=== PATIENT | male | born 1960 | race African-American/Black ===

== ENCOUNTER 2024-01-02 17:10 | Observation (INO) ==
[2024-01-02 18:22] LABS: Basophils # (auto) 0.04 K/uL (0.00-0.20); Basophils % (auto) 0.4 %; Eosinophils # (auto) 0.22 K/uL (0.00-0.50); Hematocrit (blood only) 45.3 % (42.0-52.0); Hemoglobin 15.8 g/dl (14.0-18.0); Immature Granulocytes # (auto) 0.06 K/uL (0.01-0.20); Immature Granulocytes % (auto) 0.6 %; Lymphocytes # (auto) 1.97 K/uL (1.20-3.40); Lymphocytes % (auto) 18.3 %; Mean Corpuscular Hemoglobin 30.1 pg (25.0-34.0); Mean Corpuscular Hgb Conc 34.9 g/dL (32.0-36.0); Mean Corpuscular Volume 86.3 fL (80.0-100.0); Monocytes # (auto) 0.78 K/uL (0.11-0.59); Monocytes % (auto) 7.2 %; Neutrophils # (auto) 7.71 K/uL (1.40-6.50); Neutrophils % (auto) 71.5 %; Platelet Count 357 K/uL (130-400); RDW Coefficient of Variation 13.3 % (11.5-14.5); RDW Standard Deviation 41.5 fL (36.4-46.3); Red Blood Count 5.25 M/uL (4.70-6.10); White Blood Count 10.78 K/ul (4.8-10.8)
[2024-01-02 18:38] LABS: Albumin Globulin Ratio 1.2 (0.9-2); Albumin Level 4.5 gm/dl (3.4-5.0); BUN Creatinine Ratio 38.2 (10-20); Bilirubin,Total 0.7 mg/dl (0.2-1.0); Calcium 9.7 mg/dl (8.6-10.3); Est GFR (African American) 118.6 ml/min; Est GFR (Non-African American) 102.4 ml/min; Globulin 3.8 gm/dl (2.5-4.0); Potassium 3.7 mmol/L (3.5-5.1); Total Protein 8.3 gm/dl (6.0-8.3)
[2024-01-02 18:44] LABS: Troponin I High Sensitivity 14.6 pg/ml (0-20)
[2024-01-02 18:50] LABS: Partial Thromboplastin Time 29 Seconds (21-31); Prothrombin Time 10.5 Seconds (9.0-12.0)
--- NOTE | 2024-01-02 18:50 | XRay Report ---
XR chest 1V not portable HISTORY: Chest pain, nonspecific COMPARISON: None. FINDINGS: The lungs are clear. Cardiac silhouette is normal in size. No pleural effusions. No pneumot horax. IMPRESSION: No acute process. ACT 112: Negative or not required by law. Electronically signed by: Mook King M.D. 01/02/2024 6:48 PM
[2024-01-02] MEDS: KETOROLAC TROMETHAMINE 15 MG/ML VIAL IV ONE (19:20)
--- NOTE | 2024-01-02 19:21 | Emergency Department Note ---
History of Present Illness General Chief complaint: Syncope Stated complaint: FALL, FOOT PAIN/SWELLING Time Seen by Provider: 01/02/24 19:01 Source: patient, RN notes reviewed and old records reviewed Mode of arrival: ambulatory Limitations: no limitations History of Present Illness Maximum Pain Intensity: 9 This patient is a 63-year-old male who comes in after having a syncopal episode. He does not recall anything before or after. He has been having subacute issues with pain in his legs bilaterally. He is felt like his feet have been swelling since last week. He has not fallen besides today he said around 330 he felt like he has slight headache he had just eaten and was going to go to bed and then woke up on the floor. He is not sure what happened but does not recall feeling sick prior to passing out. No cough. He was short of breath a couple days ago but none today. No chest pain. He says his head feels okay right now no abdominal pain no urinary symptoms no incontinence or tongue biting during this episode. No focal numbness or weakness he has had some lightheadedness and dizziness sporadically over the last couple days no blood in his stool however it was black couple weeks ago 1 day. No nausea vomiting or diarrhea. He presently does not have a doctor and is set up to be seen by [facility] but has not seen a doctor in about 2 years Home Medications Medication Instructions Recorded Confirmed Type No Known Home Medications 01/02/24 01/02/24 History Allergies Allergy/AdvReac Type Severity Reaction Status Date / Time No Known Allergies Allergy Unverified 01/02/24 21:29 Past Med/Surg History Social History Smoking Status: Never smoker Preferred Language: Croatian Feels Safe at Home: Yes Immunizations: Past medical history chronic problems with his right hip. He thinks he has increased cholesterol but is on no treatment. He does not believe he is diabetic. He is not sure about hypertension Family history denies premature cardiac disease Social historyhe lives locally with his girlfriend. He set up to be seen by [facility] although has not seen them yet. Denies alcohol tobacco and drug use Review of Systems A total of 10 systems reviewed and were otherwise negative Physical Exam Vital Signs Vital Signs - 24 hr 01/02/24 17:35 01/02/24 19:20 01/02/24 19:28 Temperature 37.1 C Temperature Source Temporal Artery Scan Pulse Rate 95 H Pulse Rate [Left Apical] 94 H Pulse Rate [Right Finger] 85 Pulse Rate from SpO2 Sensor Pulse Rhythm Regular Pulse Strength Normal Respiratory Rate 18 18 21 Respiratory Effort / Characteristics Non-Labored Spontaneous Non-Labored Spontaneous Labored Respiratory Depth Normal Normal Respiratory Pattern Regular Regular Blood Pressure 180/132 H Blood Pressure [Left Arm] 200/122 H Blood Pressure [Right Arm] 208/127 H Blood Pressure Mean 148 Blood Pressure Mean [Left Arm] 148 Blood Pressure Mean [Right Arm] 154 Blood Pressure Position Sitting Pulse Oximetry 95 98 96 Oxygen Delivery Method Room Air Room Air Room Air Sepsis Recent Fever Within 48 Hours No Sepsis New/Unexplained Change in Mental Status No Sepsis Action Taken by Nursing No Action Required 01/02/24 19:28 01/02/24 19:31 01/02/24 20:42 Temperature Temperature Source Pulse Rate 91 H 94 H Pulse Rate [Left Apical] Pulse Rate [Right Finger] Pulse Rate from SpO2 Sensor 95 H Pulse Rhythm Pulse Strength Respiratory Rate 22 Respiratory Effort / Characteristics Respiratory Depth Respiratory Pattern Blood Pressure 208/127 H Blood Pressure [Left Arm] Blood Pressure [Right Arm] Blood Pressure Mean 154 Blood Pressure Mean [Left Arm] Blood Pressure Mean [Right Arm] Blood Pressure Position Pulse Oximetry 95 94 Oxygen Delivery Method Room Air Room Air Sepsis Recent Fever Within 48 Hours Sepsis New/Unexplained Change in Mental Status Sepsis Action Taken by Nursing 01/02/24 20:49 01/02/24 21:02 Temperature Temperature Source Pulse Rate 91 H 102 H Pulse Rate [Left Apical] Pulse Rate [Right Finger] Pulse Rate from SpO2 Sensor Pulse Rhythm Pulse Strength Respiratory Rate 21 24 Respiratory Effort / Characteristics Respiratory Depth Respiratory Pattern Blood Pressure 208/116 H 192/136 H Blood Pressure [Left Arm] Blood Pressure [Right Arm] Blood Pressure Mean 146 154 Blood Pressure Mean [Left Arm] Blood Pressure Mean [Right Arm] Blood Pressure Position Pulse Oximetry 96 95 Oxygen Delivery Method Room Air Room Air Sepsis Recent Fever Within 48 Hours Sepsis New/Unexplained Change in Mental Status Sepsis Action Taken by Nursing General: Well developed well nourished older male who appears in no acute distress, breathing comfortably on room air. Normal speech HEENT: Normal cephalic atraumatic. Pupils are equal round and reactive to light. Extraocular movements are intact. Oropharynx is pink with moist mucous membranes. No swelling of the mouth lips or tongue. Neck: Supple with a midline trachea. No meningeal signs or stiffness, no JVD or bruits. No Stridor. Chest: Clear to auscultation bilaterally. No wheezes or rhonchi. No increased work of breathing. Heart: Regular rate and rhythm without murmurs or gallops. Abdomen: Soft nontender, nondistended without rebound guarding or rigidity. Extremities: No cyanosis clubbing. He does have 1+ bilateral lower extremity edema. No calf tenderness or assymetry Spine/Back. Non tender to palpation. No CVA tenderness Skin: Good turgor without rashes. Neurologic exam: Cranial nerves two through 12 are intact. Motor and sensation are intact and symmetrical throughout. Course Administered Medications Acetaminophen (Acetaminophen 325 Mg Tab) 650 mg PO Q4H PRN PRN Reason: pain/fever Stop: 02/01/24 21:06 Last Admin: 01/03/24 01:37 Dose: 650 mg Documented By: SHIMA Discontinued Medications Sodium Chloride (Nss) 500 mls @ 999 mls/hr IV .Q31M ONE Stop: 01/02/24 19:43 Last Infusion: 01/02/24 20:58 Dose: Infused Documented By: Admin: 01/02/24 19:25 Dose: 999 mls/hr Documented By: GENE Ketorolac Tromethamine (Ketorolac Tromethamine 15 Mg/Ml Vial) 10 mg IV NOW ONE Stop: 01/02/24 19:14 Last Admin: 01/02/24 19:20 Dose: 10 mg Documented By: [facility] Miscellaneous Information (Patient's Allergy Info Needs Entered) 1 each N/A NOW STA Stop: 01/02/24 21:16 Last Admin: 01/02/24 22:15 Dose: Not Given Documented By: SHIMA Medical Decision Making Differential Diagnosis Syncope, arrhythmia, hypertension, electrolyte or metabolic abnormality, spinal process, orthopedic process, kidney disease Medical Records Attestation: I reviewed the patient's medical records. Home Medications Current Medication List: was personally reviewed by me Laboratory Data Attestation: I reviewed the patient's lab results. 01/02/24 18:04 01/02/24 18:04 Lab Results 01/02/24 Range/Units 18:04 WBC 10.78 (4.8-10.8) K/ul RBC 5.25 (4.70-6.10) M/uL Hgb 15.8 (14.0-18.0) g/dl Hct 45.3 (42.0-52.0) % MCV 86.3 (80.0-100.0) fL MCH 30.1 (25.0-34.0) pg MCHC 34.9 (32.0-36.0) g/dL RDW Std Deviation 41.5 (36.4-46.3) fL RDW Coeff of Krishan 13.3 (11.5-14.5) % Plt Count 357 (130-400) K/uL MPV 9.0 L (9.4-12.4) fL Immature Gran % (Auto) 0.6 % Neut % (Auto) 71.5 % Lymph % (Auto) 18.3 % Louisa % (Auto) 7.2 % Eos % (Auto) 2.0 % Baso % (Auto) 0.4 % Neut # (Auto) 7.71 H (1.40-6.50) K/uL Lymph # (Auto) 1.97 (1.20-3.40) K/uL Louisa # (Auto) 0.78 H (0.11-0.59) K/uL Eos # (Auto) 0.22 (0.00-0.50) K/uL Baso # (Auto) 0.04 (0.00-0.20) K/uL Immature Gran # (Auto) 0.06 (0.01-0.20) K/uL PT 10.5 (9.0-12.0) Seconds INR 1.0 (0.9-1.1) APTT 29 (21-31) Seconds PTT Ratio 1.0 Sodium 138 (136-145) mmol/L Potassium 3.7 (3.5-5.1) mmol/L Chloride 106 (98-107) mmol/L Carbon Dioxide 25 (21-32) mmol/L Anion Gap 7 (3-11) BUN 26 H (6-23) mg/dl Creatinine 0.68 (0.6-1.4) mg/dl Est Cr Clr Drug Dosing 109.0 ml/min Est GFR ( Amer) 118.6 ml/min Est GFR (Non-Af Amer) 102.4 ml/min BUN/Creatinine Ratio 38.2 H (10-20) Glucose 92 (70-99(Fasting)) mg/dl Calcium 9.7 (8.6-10.3) mg/dl Total Bilirubin 0.7 (0.2-1.0) mg/dl AST 36 (13-39) U/L ALT 33 (7-52) U/L Alkaline Phosphatase 83 (34-104) U/L Troponin I High Sens 14.6 (0-20) pg/ml Total Protein 8.3 (6.0-8.3) gm/dl Albumin 4.5 (3.4-5.0) gm/dl Globulin 3.8 (2.5-4.0) gm/dl Albumin/Globulin Ratio 1.2 (0.9-2) Imaging Data Attestation: I personally reviewed and interpreted this imaging study as follows: My Impression: Chest x-rayno acute infiltrate, failure, pneumothorax seen as per my independent interpretation Radiologist's Impression: Chest X-Ray 01/02/24 17:41 XR chest 1V not portable HISTORY: Chest pain, nonspecific COMPARISON: None. FINDINGS: The lungs are clear. Cardiac silhouette is normal in size. No pleural effusions. No pneumothorax. IMPRESSION: No acute process. ACT 112: Negative or not required by law. Electronically signed by: Mook King M.D. 01/02/2024 6:48 PM ECG Data Attestation: I personally reviewed and interpreted this ECG as follows: Indication: + syncope Rate (beats per minute): 94 Rhythm: + normal sinus ECG Intervals/blocks: + Normal QRS, + Normal QT and + Normal MI ECG [place]: + Normal ECG ST segments: + Normal ST segments ECG Findings: + Poor R wave progression; no PACs Comparison ECG Date: no prior available MDM Narrative This patient comes in as scribed above I did see him in the [place]. He had a syncopal episode. he also had pain in his legs. on exam he does have peripheral edema is 1+ pitting. His labs were remarkable for BUN being mildly elevated he could have a prerenal component and was given just a gentle amount of IV fluids , I am worried about cardiac disease although he does not appear to be in pulmonary edema. His troponin is negative his EKG shows poor of progression but no acute ischemic changes. His blood pressure was significant elevated initially this could be situational and can have them rechecked this. He believes that he does have a history of hypercholesteremia but is untreated he has not been in the doctor for 2 years he tells me we have no old records here I do think he needs to be admitted/observed for cardiac evaluation and monitoring. Have consulted the hospitalist to see him for these measures. His blood pressure did come back elevated as well and I am not sure how long this has been like this I suspect this is more chronic he will likely need to be started on medications for this. I did consult and discussed case with Dr. Omer she saw the patient ER will admit/observe him for these measures Impression & Plan Syncope, Bilateral lower extremity edema, Hypertension, Bilateral leg pain Discharge Plan Visit Data Chief Complaint: Syncope Stated Complaint: FALL, FOOT PAIN/SWELLING ED Provider: Bradley Murray Discharge Problem: Syncope, Bilateral lower extremity edema, Hypertension, Bilateral leg pain Patient Disposition: Admitted As Inpatient Discharge Instructions Interventions: ED Discharge Assessment Last Done: 01/02/24 22:13 Discharge Problem: Syncope Qualifiers: Encounter type: initial encounter Hypertension Qualifiers: Hypertension type: unspecified Qualified Code(s): I10 - Essential (primary) hypertension
[2024-01-02] MEDS: SODIUM CHLORIDE 0.9% 500 ML IV ONE (19:25)
--- NOTE | 2024-01-02 20:16 | History & Physical Report ---
Date of Service January 02, 2024 Assessment & Plan (1) Syncope: Plan: Pt is a 63 yo male with no significant PMH (per pt report) presenting to the ED d/t syncope and bilateral LE edema. Syncope - unknown etiology; d/t lack of prodrome, concern for cardiac etiology - CBC, CMP WNL; trop neg- s/p 1L IVF in ER - check orthostatic VS - continue tele monitoring for arrhythmias - ordered bilateral carotid dopplers to r/o blockage - will check A1c and lipid panel with AM labs Bilateral LE edema - acute, unknown etiology - venous stasis vs. heart failure vs. ? - BNP added to prior lab draw; TSH added to AM labs - echo ordered to evaluate for HF - will get UA to check for proteinuria Hypertension - ~200s/120s; suspect chronic HTN - no outpatient therapy; will add low dose ARB which should be continued upon discharge Diet: heart healthy Code: full VTE ppx: lovenox Dispo: admit to med/tele (2) Bilateral lower extremity edema: (3) Hypertension: History of Present Illness Chief Complaint: syncope, bilateral LE edema Primary Care Provider: NO PCP Pt is a 63 yo male with no significant PMH (per pt report) presenting to the ED d/t syncope and bilateral LE edema. Pt states he has had bilateral leg swelling for the past week. He has never had this before. He also notes his upper legs are painful. He does have a long standing hx of right hip pain/problem ongoing for about a year. He denies any related symptoms of chest pain, SOB, cough, fevers, and N/V/D. He also relays that he passed out at home today. No significant prodrome- no sweating, dizziness, nausea, or chest pain. He simply woke up on the floor after he was getting some food. He is unsure if he hit his head. He notes that he had a similar episode about 4-5 months ago. He does note intermittent dizziness over the last 3 weeks that does not seem to be triggered by anything and resolves spontaneously. He denies any PMH including stroke, heart problem/[place], or seizures. He denies taking any daily medications aside from advil for pain relief. He denies alcohol use, smoking, and drug use. He does vape tobacco. He has never had surgery. He note he moved here around 2.5 years ago from [place] to be with his girlfriend. He has plans to establish with [facility] in the near future. Allergies Allergy/AdvReac Type Severity Reaction Status Date / Time No Known Allergies Allergy Unverified 01/02/24 21:29 Home Medications Medication Instructions Recorded Confirmed Type No Known Home Medications 01/02/24 01/02/24 History Past Med/Surg History Social History Smoking Status: Never smoker Preferred Language: Welsh Feels Safe at Home: Yes Review of Systems Review of Systems: As per HPI Physical Exam Constitutional: NAD. Well appearing Eyes: Conjunctivae normal. Respiratory: CTA bilaterally. Non labored breathing. No rhonchi, wheezing, or crackles. Cardiovascular: RRR. No murmurs noted. 1+ bilateral pitting LE edema. Gastrointestinal (Abdomen): Nontender, +BS. No masses noted. Musculoskeletal: 5/5 strength in bilateral dorsi/plantar flexion. 4/5 strength of bilateral hip flexion. Skin: No rashes or skin lesions noted. Hyperkeratosis of bilateral feet noted. Neurologic: Sensation grossly intact. No FND appreciated. Psychiatric: Speech of normal pace and content. Mood and affect congruent. Results & Data Results & Data Vital Signs (Past 12 Hours) Vital Signs Temp Pulse Pulse Pulse Resp BP BP 01/02/24 19:28 91 H 01/02/24 19:28 94 H 21 01/02/24 19:20 85 18 200/122 H 01/02/24 17:35 37.1 C 95 H 18 180/132 H BP Pulse Ox O2 Del Method 01/02/24 19:28 01/02/24 19:28 208/127 H 96 Room Air 01/02/24 19:20 98 Room Air 01/02/24 17:35 95 Room Air Laboratory Results Laboratory Results WBC 10.78 K/ul (4.8-10.8) 01/02/24 18:04 RBC 5.25 M/uL (4.70-6.10) 01/02/24 18:04 Hgb 15.8 g/dl (14.0-18.0) 01/02/24 18:04 Hct 45.3 % (42.0-52.0) 01/02/24 18:04 MCV 86.3 fL (80.0-100.0) 01/02/24 18:04 MCH 30.1 pg (25.0-34.0) 01/02/24 18:04 MCHC 34.9 g/dL (32.0-36.0) 01/02/24 18:04 RDW Std Deviation 41.5 fL (36.4-46.3) 01/02/24 18:04 RDW Coeff of Krishan 13.3 % (11.5-14.5) 01/02/24 18:04 Plt Count 357 K/uL (130-400) 01/02/24 18:04 MPV 9.0 fL (9.4-12.4) L 01/02/24 18:04 Immature Gran % (Auto) 0.6 % 01/02/24 18:04 Neut % (Auto) 71.5 % 01/02/24 18:04 Lymph % (Auto) 18.3 % 01/02/24 18:04 Wayne % (Auto) 7.2 % 01/02/24 18:04 Eos % (Auto) 2.0 % 01/02/24 18:04 Baso % (Auto) 0.4 % 01/02/24 18:04 Neut # (Auto) 7.71 K/uL (1.40-6.50) H 01/02/24 18:04 Lymph # (Auto) 1.97 K/uL (1.20-3.40) 01/02/24 18:04 Wayne # (Auto) 0.78 K/uL (0.11-0.59) H 01/02/24 18:04 Eos # (Auto) 0.22 K/uL (0.00-0.50) 01/02/24 18:04 Baso # (Auto) 0.04 K/uL (0.00-0.20) 01/02/24 18:04 Immature Gran # (Auto) 0.06 K/uL (0.01-0.20) 01/02/24 18:04 PT 10.5 Seconds (9.0-12.0) 01/02/24 18:04 INR 1.0 (0.9-1.1) 01/02/24 18:04 APTT 29 Seconds (21-31) 01/02/24 18:04 PTT Ratio 1.0 01/02/24 18:04 Sodium 138 mmol/L (136-145) 01/02/24 18:04 Potassium 3.7 mmol/L (3.5-5.1) 01/02/24 18:04 Chloride 106 mmol/L (98-107) 01/02/24 18:04 Carbon Dioxide 25 mmol/L (21-32) 01/02/24 18:04 Anion Gap 7 (3-11) 01/02/24 18:04 BUN 26 mg/dl (6-23) H 01/02/24 18:04 Creatinine 0.68 mg/dl (0.6-1.4) 01/02/24 18:04 Est Cr Clr Drug Dosing 109.0 ml/min 01/02/24 18:04 Est GFR ( Amer) 118.6 ml/min 01/02/24 18:04 Est GFR (Non-Af Amer) 102.4 ml/min 01/02/24 18:04 BUN/Creatinine Ratio 38.2 (10-20) H 01/02/24 18:04 Glucose 92 mg/dl (70-99(Fasting)) 01/02/24 18:04 Calcium 9.7 mg/dl (8.6-10.3) 01/02/24 18:04 Total Bilirubin 0.7 mg/dl (0.2-1.0) 01/02/24 18:04 AST 36 U/L (13-39) 01/02/24 18:04 ALT 33 U/L (7-52) 01/02/24 18:04 Alkaline Phosphatase 83 U/L (34-104) 01/02/24 18:04 Troponin I High Sens 14.6 pg/ml (0-20) 01/02/24 18:04 B-Natriuretic Peptide 21 pg/ml (0-100) 01/02/24 21:14 Total Protein 8.3 gm/dl (6.0-8.3) 01/02/24 18:04 Albumin 4.5 gm/dl (3.4-5.0) 01/02/24 18:04 Globulin 3.8 gm/dl (2.5-4.0) 01/02/24 18:04 Albumin/Globulin Ratio 1.2 (0.9-2) 01/02/24 18:04 Impressions Chest X-Ray 01/02/24 17:41 XR chest 1V not portable HISTORY: Chest pain, nonspecific COMPARISON: None. FINDINGS: The lungs are clear. Cardiac silhouette is normal in size. No pleural effusions. No pneumothorax. IMPRESSION: No acute process. ACT 112: Negative or not required by law. Electronically signed by: Mook King M.D. 01/02/2024 6:48 PM Supervising Physician Co-Signing Physician Notes Patient seen and examined, chart reviewed, case discussed with Dr. Cherry and I agree with the assessment and plan as documented above. In brief, patient is a 63yo male presenting with new bilateral LE edema and syncope. Also with muscle pain in his upper thighs. Syncope without prodrome. Patient denies chest pain, cough, SOB. Denies edema or orthopnea. On exam he is afebrile, marked hypertension with BP of 208/127, NAD Skin- intact, no rashes/lesions HEENT - NC/AT, PERRL, MMM, No JVD, no carotid bruit Heart - +S1/S2, regular, no m/r/g, adequate pulses, extremities warm Lungs- CTA, no rales/rhonchi/wheezes Abd - +BS, soft NT/ND Ext - warm, well perfused, 2+ pitting edema Labs and images reviewed Normal renal function Normal troponin and BNP TSH, UA and CK pending Assessment/Plan - HTN - patient reports being hypertensive in the past. Was formerly on presumed HCTZ. Currently does not take any medications -Will start Losartan 25mg po qAM Syncope - without prodrome. Concern for cardiogenic cause -Check echo, carotid dopplers, orthostatic VS -Telemetry monitoroing Edema -Check 2D echo, TSH, UA. If negative, consider vascular imaging REmainder as above Resident Activity Tracking Resident Involvement: Resident Care Provided Care Provided: Adult Hospital Medicine (1) Syncope Encounter type: initial encounter
[2024-01-02] MEDS ORDERED: ONDANSETRON INJ 2 MG/ML 2 ML VIAL IV PRN (21:07)
[2024-01-02] MEDS ORDERED: POLYETHYLENE (MIRALAX) 17 GM PACK PO PRN (21:07)
[2024-01-02] MEDS ORDERED: DEXTROSE 50% 50 ML SYRINGE IV PRN (21:15)
[2024-01-02] MEDS ORDERED: GLUCOSE 10 TAB/TUBE PO PRN (21:15)
[2024-01-02] MEDS ORDERED: GLUCOSE 40% GEL 15 GM TUBE PO PRN (21:15)
[2024-01-02] MEDS ORDERED: CARBOHYDRATES FOR HYPOGLYCEMIA PO PRN (21:15)
[2024-01-02] MEDS ORDERED: GLUCAGON FOR INJ 1 MG VIAL IM PRN (21:15)
[2024-01-02] MEDS: Patient's ALLERGY Info needs ENTERED STA (22:15)
--- NOTE | 2024-01-03 01:04 | Billing Data ---
Date of Service January 02, 2024 Coding Level of Care Code 95874 INT INP/OBS CARE
[2024-01-03] MEDS: ACETAMINOPHEN 325 MG TAB PO PRN (01:37)
[2024-01-03 05:09] LABS: Hematocrit (blood only) 43.4 % (42.0-52.0); Hemoglobin 15.3 g/dl (14.0-18.0); Mean Corpuscular Hemoglobin 30.5 pg (25.0-34.0); Mean Corpuscular Hgb Conc 35.3 g/dL (32.0-36.0); Mean Corpuscular Volume 86.5 fL (80.0-100.0); Platelet Count 326 K/uL (130-400); RDW Coefficient of Variation 13.2 % (11.5-14.5); RDW Standard Deviation 41.1 fL (36.4-46.3); Red Blood Count 5.02 M/uL (4.70-6.10); White Blood Count 12.04 K/ul (4.8-10.8)
[2024-01-03 05:16] LABS: Albumin Globulin Ratio 1.2 (0.9-2); Albumin Level 4.2 gm/dl (3.4-5.0); BUN Creatinine Ratio 36.1 (10-20); Calcium 9.6 mg/dl (8.6-10.3); Creatinine Clr Calc Pharmacy 102.9 ml/min; Est GFR (African American) 115.9 ml/min; Globulin 3.4 gm/dl (2.5-4.0); Potassium 3.4 mmol/L (3.5-5.1); Total Protein 7.6 gm/dl (6.0-8.3)
[2024-01-03 05:32] LABS: Thyroid Stimulating Hormone 1.807 uIu/ml (0.300-4.500)
[2024-01-03 07:21] LABS: Estimated Average Glucose 114 mg/dl; Hemoglobin A1C 5.6 % (4.5-5.6)
[2024-01-03] MEDS: LOSARTAN POTASSIUM 25 MG TAB PO SCH (08:29)
--- NOTE | 2024-01-03 09:35 | Ultrasound Report ---
CAROTID ARTERY ULTRASOUND CLINICAL HISTORY: Syncope. COMPARISON STUDY: None. TECHNIQUE: Real-time, grayscale, and color Doppler sonography of the carotid and vertebral arteries w as performed. Images were viewed in the transverse and longitudinal planes. FINDINGS: There is mild to moderate atherosclerotic plaque present within the right carotid bifurcation and min imal plaque within the left carotid bifurcation. Velocity measurements are listed below. COMMON CAROTID PEAK SYSTOLIC VELOCITY (CM/S): RIGHT 84 LEFT 77 ICA PEAK SYSTOLIC VELOCITY (CM/S): RIGHT 112 LEFT 68 Systolic ratios between the internal to common carotid arteries were normal. Antegrade flow is seen in the vertebral arteries. The external carotid arteries are patent. IMPRESSION: No evidence for a hemodynamically significant stenosis. ACT 112: Negative or not required by law. Electronically signed by: Dada Betts M.D. 01/03/2024 9:33 AM
[2024-01-03] MEDS: LOSARTAN POTASSIUM 25 MG TAB PO ONE (12:29)
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
--- NOTE | 2024-01-03 13:16 | XCELERA ---
[id number]
--- NOTE | 2024-01-03 13:25 | Electrocardiogram Report ---
Test Reason : Blood Pressure : / mmHG Vent. Rate : 094 BPM Atrial Rate : 094 BPM P-R Int : 132 ms QRS Dur : 094 ms QT Int : 366 ms P-R-T Axes : 065 -07 013 degrees QTc Int : 457 ms Normal sinus rhythm Poor R wave progression, consider anterior OK vs. lead placement vs. LVH Abnormal ECG No previous ECGs available Confirmed by Colt Braden ([id number]) on 01/03/2024 1:24:40 PM Referred By: REFERRED SELF Confirmed By:Colt Braden
[2024-01-03 13:34] LABS: Appearance Urine Clear (Clear); Bilirubin Urine Negative (Negative); Blood Urine Negative (Negative); Color Urine Yellow; Glucose Urine UA Negative (Negative); Ketones Urine Negative (Negative); Leukocyte Esterase Urine Negative (Negative); Nitrite Urine Negative (Negative); Protein Urine Negative (Negative); Specific Gravity Urine 1.015 (1.000-1.030); Urobilinogen Urine Negative (Negative)
[2024-01-03 13:38] LABS: D Dimer 480 ug/L FEU (0-500)
--- NOTE | 2024-01-03 14:55 | Ultrasound Report ---
BILATERAL LOWER EXTREMITY VENOUS DOPPLER CLINICAL HISTORY: Bilateral lower extremity edema. COMPARISON STUDY: No previous studies for comparison. TECHNIQUE: Sonography of the deep venous system of the bilateral lower extremities was performed. Co mpression and augmentation were evaluated. FINDINGS: This exam was mildly compromised given difficulty positioning. The bilateral common femoral , superficial femoral and popliteal veins were compressible. Augmentation was normal. Flow was shown within the deep calf vessels. IMPRESSION: Exam mildly compromised given difficulty positioning but no evidence of deep venous throm bus within the bilateral lower extremities. ACT 112: Negative or not required by law. Electronically signed by: Dada Betts M.D. 01/03/2024 2:53 PM
[2024-01-03] MEDS: hydroCHLOROthiazide 25 MG TAB PO SCH (19:22)
[2024-01-03] MEDS: POTASSIUM CHLORIDE CRTAB 20 MEQ TABCR PO STA (19:23)
[2024-01-03] MEDS: KETOROLAC TROMETHAMINE 15 MG/ML VIAL IV ONE (20:17)
[2024-01-03] MEDS: ENOXAPARIN INJ 40 MG/0.4 ML SYR SQ SCH (20:18)
[2024-01-04 02:31] LABS: Amphetamines+Metham, Urine Neg (Neg); Barbiturates, Urine Neg (Neg); Benzodiazepine, Urine Neg (Neg); Cocaine, Urine Neg (Neg); MDMA (Ecstacy), Urine Neg (Neg); Marijuana, Urine Neg (Neg); Methadone, Urine Neg (Neg); Opiate, Urine Neg (Neg); Phencyclidine, Urine Neg (Neg)
[2024-01-04] MEDS: INFLUENZA VIRUS QUADRIVALENT VACCINE (IIV4) 0.5 ML SYR IM ONE (07:16)
[2024-01-04 08:02] LABS: BUN Creatinine Ratio 38.4 (10-20); Creatinine Clr Calc Pharmacy 101.5 ml/min; Est GFR (African American) 115.2 ml/min; Est GFR (Non-African American) 99.4 ml/min; Potassium 3.8 mmol/L (3.5-5.1)
[2024-01-04 08:04] LABS: Hematocrit (blood only) 46.6 % (42.0-52.0); Hemoglobin 15.8 g/dl (14.0-18.0); Mean Corpuscular Hemoglobin 29.4 pg (25.0-34.0); Mean Corpuscular Hgb Conc 33.9 g/dL (32.0-36.0); Mean Corpuscular Volume 86.8 fL (80.0-100.0); Mean Platelet Volume 8.7 fL (9.4-12.4); Platelet Count 349 K/uL (130-400); RDW Coefficient of Variation 13.2 % (11.5-14.5); RDW Standard Deviation 41.8 fL (36.4-46.3); Red Blood Count 5.37 M/uL (4.70-6.10); White Blood Count 10.42 K/ul (4.8-10.8)
[2024-01-04] MEDS: LACTATED RINGER'S 1,000 ML IV SCH (08:51)
[2024-01-04] MEDS: LOSARTAN POTASSIUM 50 MG TAB PO SCH (08:52)
[2024-01-04] MEDS: OPTIRAY 320 125ml IV ONE (11:55)
--- NOTE | 2024-01-04 12:41 | CT Scan Report ---
CT ANGIOGRAM OF THE ABDOMEN, PELVIS, BILATERAL LOWER EXTREMITIES WITH RUNOFF CT DOSE: 1456.55 mGy.cm CLINICAL HISTORY: Lower extremity pain. Assess for peripheral arterial disease. TECHNIQUE: Multiaxial CT images of the abdomen, pelvis, bilateral lower extremities were performed fo llowing the intravenous administration of 118 cc of Optiray 320. 3-D/maximal intensity projection darrin ges in the sagittal and coronal planes were performed for the CTA portion of the examination. A dose lowering technique was utilized adhering to the principles of ALARA. COMPARISON STUDY: None. FINDINGS: CTA: The visualized heart appears normal in size. There are single bilateral renal arteries which are patent. The celiac, superior mesenteric, and inferior mesenteric arteries are widely patent. Inciden janet note is made of a replaced right hepatic artery originating from the superior mesenteric artery. This is considered to be a normal variant. Abdominal aorta is normal and course and caliber with no e vidence for an aneurysm or dissection. The bilateral iliac arteries are also normal in course and kareem iber. Mild calcified plaque within the bilateral common femoral arteries without significant stenosis or occlusion. The bilateral superficial femoral arteries are widely patent. Focal narrowing of up to 60% within the proximal to mid right popliteal artery on image 645. Focal narrowing of approximately 60% within the proximal to mid left popliteal artery on image 639. The bilateral posterior tibial ar teries are patent. The right anterior tibial artery is patent. There is moderate focal narrowing of a pproximately 60% at the takeoff of the left anterior tibial artery. Otherwise, the remaining left ant erior tibial artery is widely patent. The right peroneal artery is completely occluded. Trickle of co ntrast within the proximal left peroneal artery. Otherwise, the left peroneal artery appears complete ly occluded. The bilateral dorsalis pedis arteries appear patent. Mild dependent changes seen within the lung bases. Motion artifact results in suboptimal evaluation o f the abdomen and pelvis. Severe degenerative changes within the bilateral hips. The liver, spleen, a drenal glands, pancreas, and gallbladder appear unremarkable. Normal left kidney. There is a 1.5 cm r ight renal cyst. No hydronephrosis. No retroperitoneal or pelvic lymphadenopathy. The bladder is unre markable. The prostate gland is mildly enlarged. No bowel wall thickening or obstruction. Normal appe ndix. IMPRESSION: 1. Focal narrowing of the proximal to mid bilateral popliteal arteries of approximately 60%. 2. Bilateral peroneal arteries are occluded. 3. Moderate focal narrowing at the takeoff of the left anterior tibial artery. 4. Additional findings as described above. ACT 112: Negative or not required by law. Electronically signed by: Mook King M.D. 01/04/2024 12:39 PM
[2024-01-04] MEDS: ASPIRIN 81 MG ECTAB PO SCH (13:45)
--- NOTE | 2024-01-04 14:11 | Hospitalist Progress Note ---
Date of Service January 04, 2024 Assessment & Plan (1) Syncope: Plan: Pt is a 63 yo male with no significant PMH (per pt report) presenting to the ED d/t syncope and bilateral LE edema. - unknown etiology; d/t lack of prodrome, concern for cardiac etiology - CBC, CMP WNL; trop neg x2. 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 However patient reports that much improved from week prior (was unable to wear shoes) - likely related to venous stasis - BNP: 21; TSH: WNL - echo: EF 55-60s, no regional wall motion abnormalities. - UA without proteinuria -starting HCTZ (4) Hypertension: Plan: - ~200s/120s; suspect chronic HTN, no home meds - losartan increased to 50mg - add HCTZ 25 mg to also help with Leg swelling Blood pressures have improved AM CMP (5) Rhabdomyolysis: Plan: CK 862 --> 1080 Received 1L fluid in the ER LR x2L today am CK Plan dispo: continued inpatient stay VTE ppx: lovenox Admission and Anticipated Discharge Date Admission Date: January 02, 2024 Supervising Physician Co-Signing Physician Notes PA Supervision Note: I did not personally see or examine the patient today, but I verified all [place] points of ANGELINA García's assessment and plan with the following exceptions/additions: changes made in A/P Subjective Patient sitting on the side of the bed when i evaluated him this morning, complaining of thigh pain, R > L. Pain has started in the last month or so. Had a few falls about 5 months ago, but nothing recently besides being found down. Pain is worse at night, ache/cramping feeling. Does get better when he walks around at night. Review of Systems Review of Systems: All systems reviewed & are unremarkable except as noted in Subjective Physical Exam Physical Exam: General: NAD, VS as above Resp: normal respiratory effort, lungs clear to auscultation CV: tachycardic, no murmur, Abd: normal bowel sounds, non tender, no hepatosplenomegaly Extremities: Moves all extremities, 2+ bilateral LE edema, weak pedal pulse R foot, unable to palpate L foot, but can find pulse with doppler Neuro: A&O x3, Results & Data Results & Data Vital Signs (Past 12 Hours) Vital Signs Temp Pulse Pulse Resp BP Pulse Ox O2 Del Method 01/04/24 11:41 36.5 C 94 H 18 135/89 96 Room Air 01/04/24 07:50 36.5 C 95 H 16 138/84 93 Room Air 01/04/24 07:14 78 01/04/24 02:25 36.6 C 92 H 18 141/90 H 97 Room Air Laboratory Results CBC, chemistry and CK reviewed Diagnostic Findings CTA run off reviewed PG Care Time/CCT Total # of Minutes Spent Total Time Spent with Patient: Total time spent is greater than 50% in coordination of care (as documented) at patient's floor/unit and/or counseling patient: Coding Level of Care Code 69134 SUB INP/OBS CARE 3/50MIN Diagnoses Syncope R55 Encounter type: initial encounter Peripheral artery disease I73.9 Bilateral lower extremity edema R60.0 Hypertension I10 Hypertension type: unspecified Rhabdomyolysis M62.82 (1) Syncope Encounter type: initial encounter (4) Hypertension Hypertension type: unspecified Qualified Code(s): I10 - Essential (primary) hypertension
[2024-01-04] MEDS: MELATONIN 3 MG TAB PO PRN (20:16)
[2024-01-05 07:03] LABS: Albumin Globulin Ratio 1.4 (0.9-2); Albumin Level 4.3 gm/dl (3.4-5.0); BUN Creatinine Ratio 38.4 (10-20); Bilirubin,Total 0.8 mg/dl (0.2-1.0); Calcium 9.6 mg/dl (8.6-10.3); Creatinine Clr Calc Pharmacy 101.5 ml/min; Est GFR (African American) 115.2 ml/min; Est GFR (Non-African American) 99.4 ml/min; Potassium 3.6 mmol/L (3.5-5.1); Total Protein 7.3 gm/dl (6.0-8.3)
[2024-01-05] MEDS: LACTATED RINGER'S 1,000 ML IV SCH (09:38)
--- NOTE | 2024-01-05 16:59 | Hospitalist Progress Note ---
Date of Service January 05, 2024 Assessment & Plan (1) Syncope: Plan: Pt is a 63 yo male with no significant PMH (per pt report) presenting to the ED d/t syncope and bilateral LE edema. - unknown etiology; d/t lack of prodrome, concern for cardiac etiology - CBC, CMP WNL; trop neg x2. Hgb A1c: 5.6, Lipid panel WNL - CK elevated - orthostatic VS negative - ECHO with mild LVH, mild TR, otherwise normal - ddimer 480 , bilat venous dopplers neg - Carotid doppler: no significant stenosis - Urine drug screen negative -recommend outpt 30 day pvc monitor but if no insurance, this would likely be cost prohibitive -PT/OT --> OT recommended inpatient rehab, however cost may be an issue (2) Peripheral artery disease: Plan: suspect with pain that is worse at night, improves with walking - CTA aorta with runoff: focal narrowing of popliteal arteries of approximately 60%, bilateral peroneal arteries occluded - ASA 81mg daily started - Start statin when rhabdomyolysis resolved - Pedal pulses + on doppler , indicating likely collaterals - encourage ambulation -f/u with Vascular surgery once obtains insurance (3) Bilateral lower extremity edema: Plan: - acute, unknown etiology. However patient reports that much improved from week prior (was unable to wear shoes) - likely related to venous stasis - BNP: 21; TSH: WNL - echo: EF 55-60s, no regional wall motion abnormalities. - UA without proteinuria -starting HCTZ (4) Hypertension: Plan: - ~200s/120s; suspect chronic HTN, no home meds - losartan increased to 50mg - add HCTZ 25 mg to also help with Leg swelling Blood pressures have improved (5) Rhabdomyolysis: Plan: CK 862 --> 1080 --> 1240 Received 1L fluid in the ER LR x2L 01/03, additional 1L 01/04 with encouraged PO intake am CK Plan dispo: continued inpatient stay, following CK levels VTE ppx: lovenox Admission and Anticipated Discharge Date Admission Date: January 02, 2024 Supervising Physician Co-Signing Physician Notes Attending Attestation - Chart reviewed, care plan d/w ANGELINA García. I agree w/ the [place] components of her documentation. Naga Guy MD Subjective patient reports leg pain is improving today. Reports good oral intake. Discussed his arterial inclusions and importance of exercise. ST 100-120s Review of Systems Review of Systems: All systems reviewed & are unremarkable except as noted in HPI & below Physical Exam Physical Exam: General: NAD, VS as above Resp: normal respiratory effort, lungs clear to auscultation CV: tachycardic, no murmur, Abd: normal bowel sounds, non tender, no hepatosplenomegaly Extremities: Moves all extremities, 1+ bilateral LE edema, able to palpate b/l pedal pulses today, however weak Neuro: A&O x3, Results & Data Results & Data Vital Signs (Past 12 Hours) Vital Signs Temp Pulse Pulse Pulse Resp BP Pulse Ox 01/05/24 14:04 107 H 01/05/24 11:16 36.8 C 96 H 12 154/87 H 96 01/05/24 07:37 36.5 C 86 16 134/80 96 01/05/24 07:00 36.4 C 56 L 14 137/89 95 01/05/24 06:08 109 H O2 Del Method 01/05/24 14:04 01/05/24 11:16 Room Air 01/05/24 07:37 Room Air 01/05/24 07:00 Room Air 01/05/24 06:08 Laboratory Results Chemistry reviewed, CK reviewed PG Care Time/CCT Total # of Minutes Spent Total Time Spent with Patient: Total time spent is greater than 50% in coordination of care (as documented) at patient's floor/unit and/or counseling patient: Coding Level of Care Code 82713 SUB INP/OBS CARE 2/35MIN Diagnoses Syncope R55 Encounter type: initial encounter Peripheral artery disease I73.9 Bilateral lower extremity edema R60.0 Hypertension I10 Hypertension type: unspecified Rhabdomyolysis M62.82 (1) Syncope Encounter type: initial encounter (4) Hypertension Hypertension type: unspecified Qualified Code(s): I10 - Essential (primary) hypertension
[2024-01-06 07:19] LABS: Albumin Globulin Ratio 1.3 (0.9-2); Albumin Level 4.2 gm/dl (3.4-5.0); Bilirubin,Total 0.9 mg/dl (0.2-1.0); Calcium 9.8 mg/dl (8.6-10.3); Creatinine Clr Calc Pharmacy 92.6 ml/min; Est GFR (Non-African American) 95.7 ml/min; Globulin 3.3 gm/dl (2.5-4.0); Potassium 3.6 mmol/L (3.5-5.1); Total Protein 7.5 gm/dl (6.0-8.3)
--- NOTE | 2024-01-06 08:16 | Hospitalist Progress Note ---
Date of Service January 06, 2024 Assessment & Plan (1) Syncope: Plan: Pt is a 63 yo male with no significant PMH (per pt report) presenting to the ED d/t syncope and bilateral LE edema. Patient reports he is UNSURE of how long her was down for - unknown etiology; d/t lack of prodrome, concern for cardiac etiology - CBC, CMP WNL; trop neg x2. Hgb A1c: 5.6, Lipid panel WNL Orthostatic vitals negative ECHO with mild LVH, mild TR, otherwise normal Ddimer 480 , bilat venous dopplers neg Carotid doppler: no significant stenosis Urine drug screen negative -recommend outpt 30 day playground monitor but if no insurance, this would likely be cost prohibitive BP meds --> supervising provider switched losartan to metoprolol 25mg BID. --> CK worsened to 1366 on repeat. --> Holding further HCTZ for now given CK elevation and no pitting edema at present, would avoid statin at present time. Continues on ASA 81mg for below TSH checked, wnl. T4 wnl, however T3 slightly elevated Checked CT head for completeness -- NEGATIVE Obtain xray pelvis/hip give pain/not clear on how long down for to ensure no acute fracture contributing to pain -Oxycodone made available prn for pain PT/OT --> OT recommended inpatient rehab, however cost may be an issue due to not having insurance. Will need to f/u CM. Monitor labs on repeat (2) Rhabdomyolysis: Plan: CK 862 --> 1080 --> 1240 Had received 1L IVF in ER, 2L on 01/03 and additional 1L on 01/04 CK further elevated to 1366, holding diuretics/losartan as above IVF NSS @ 125cc/hr for now Monitor CK on repeat (3) Peripheral artery disease: Plan: Suspect with pain that is worse at night, improves with walking CTA aorta with runoff: focal narrowing of popliteal arteries of approximately 60%, bilateral peroneal arteries occluded - Start statin when rhabdomyolysis resolved HOWEVER would hold off until seen by PCP given current elevation/worsened Pedal pulses + on Doppler , indicating likely collaterals. Venous Doppler NEGATIVE for acute DVT - encourage ambulation - f/u with Vascular surgery once obtains insurance Continue ASA 81mg , new med, rx dc Check pelvis/hip xray for completeness (4) Bilateral lower extremity edema: Plan: Acute, unknown etiology. However patient reports that much improved from week prior (was unable to wear shoes) . ?post-strep glomerulonephritis. UA negative for protein on admission. ?related to venous stasis ?2nd to rhabdo given CK elevation TSH wnl, BNP not elevated ECHO as above with normal EF, mild MR. No significant valvular abnormalities Started HCTZ 25mg daily, placing on hold given CK elevation/slightly dehydrated on exam Monitor LE edema/CK on repeat (5) Hypertension: Plan: Prior significant elevations to 200s/120s, suspect chronic HTN not on meds but also aspect of pain Losartan started and increased to 50mg daily, HCTZ added for leg swelling Given CK elevation, holding further HCTZ, losartan cancelled by supervising provider and placed on metoprolol BID and improvement in BP and will monitor Plan dispo: continued inpatient stay, following CK levels VTE ppx: lovenox Admission and Anticipated Discharge Date Admission Date: January 02, 2024 Supervising Physician Co-Signing Physician Notes The patient was not seen by me. The chart was reviewed. Case discussed with ANGELINA Saleh. Agree with assessment and plan Subjective Eval this afternoon, having some increased pain in his anterior thighs, worse than day prior. Discussed IVF and hydration. No fever/chills, chest pain, shortness of breath but needing something for pain in his legs. No increased pain to his calves, primarily to the upper legs. Reports good PO intake, urine timber cutter yellow in color. RN hanging IVF however had been delayed looking for pump. Discussed to alert of any worsening pain or for any darkened urine. Physical Exam Physical Exam: General: 63 yo male laying on his side upon entry, NAD but mildly uncomfortable HEENT: head atraumatic, normocephalic, slightly dry mm, trachea midline Resp: even/unlabored, slightly diminished in the bases but on room air CV: RRR, no significant mrg, trace pedal edema, no calf edema/tenderness, pulses faint but palpable GI: +BS, soft/NT : no walter, voiding spontaneously MSK/Neuro:edema to anterior>posterior thighs bilaterally, slightly decreased strength but equal bilaterally, thigh appearing slightly tense/tight, +tenderness Psych: AOx3, cooperative Results & Data Results & Data Vital Signs (Past 12 Hours) Vital Signs Temp Pulse Pulse Resp BP Pulse Ox O2 Del Method 01/06/24 07:47 36.3 C L 104 H 18 119/77 97 Room Air 01/06/24 06:00 80 01/06/24 02:56 36.4 C L 103 H 18 131/87 94 Room Air 01/05/24 23:03 36.6 C 97 H 18 125/79 97 Room Air 01/05/24 21:59 98 H Laboratory Results 01/06/24 01/06/24 Range/Units 08:15 06:01 Sodium 137 (136-145) mmol/L Potassium 3.6 (3.5-5.1) mmol/L Chloride 102 (98-107) mmol/L Carbon Dioxide 26 (21-32) mmol/L Anion Gap 9 (3-11) BUN 28 H (6-23) mg/dl Creatinine 0.80 (0.6-1.4) mg/dl Est Cr Clr Drug Dosing 92.6 ml/min Est GFR ( Amer) 111.0 ml/min Est GFR (Non-Af Amer) 95.7 ml/min BUN/Creatinine Ratio 35.0 H (10-20) Glucose 96 (70-99(Fasting)) mg/dl Calcium 9.8 (8.6-10.3) mg/dl Total Bilirubin 0.9 (0.2-1.0) mg/dl AST 47 H (13-39) U/L ALT 35 (7-52) U/L Alkaline Phosphatase 73 (34-104) U/L Total Creatine Kinase 1366 H (30-223) U/L Total Protein 7.5 (6.0-8.3) gm/dl Albumin 4.2 (3.4-5.0) gm/dl Globulin 3.3 (2.5-4.0) gm/dl Albumin/Globulin Ratio 1.3 (0.9-2) TSH 3.406 (0.300-4.500) uIu/ml Free T4 1.12 (0.61-1.60) ng/dl Free T3 4.53 H (2.3-4.2) pg/ml Diagnostic Findings Head CT 01/06/24 13:[address] DOSE: 625.8 mGy.cm HISTORY: syncope, eval stroke TECHNIQUE: Multiaxial CT images of the head were performed without the use of intravenous contrast. Automated exposure control was utilized for this study. A dose lowering technique was utilized adhering to the principles of ALARA. Comparison: None. Findings: The paranasal sinuses and mastoid air cells are clear. The calvarium and skull base are intact. The ventricles and sulci are within normal limits. There is no mass, hematoma, midline shift, or acute infarct. Impression: No acute intracranial abnormality. ACT 112: Negative or not required by law. Electronically signed by: Mook King M.D. 01/06/2024 3:05 PM PG Care Time/CCT Total # of Minutes Spent Total Time Spent with Patient: Total time spent is greater than 50% in coordination of care (as documented) at patient's floor/unit and/or counseling patient: Coding Level of Care Code 12145 SUB INP/OBS CARE 350MIN Diagnoses Syncope R55 Encounter type: initial encounter Rhabdomyolysis M62.82 Peripheral artery disease I73.9 Bilateral lower extremity edema R60.0 Hypertension I10 Hypertension type: unspecified (1) Syncope Encounter type: initial encounter (5) Hypertension Hypertension type: unspecified Qualified Code(s): I10 - Essential (primary) hypertension
[2024-01-06] MEDS: METOPROLOL TARTRATE 25 MG TAB PO SCH (09:32)
[2024-01-06 09:56] LABS: Thyroid Stimulating Hormone 3.406 uIu/ml (0.300-4.500)
[2024-01-06 09:58] LABS: T4 Free Thyroxine 1.12 ng/dl (0.61-1.60)
[2024-01-06] MEDS: SODIUM CHLORIDE 0.9% 1,000 ML IV SCH (13:41)
[2024-01-06] MEDS: oxyCODONE HCL IR 5 MG TAB (IMMEDIATE RELEASE) PO STA (13:50)
--- NOTE | 2024-01-06 15:06 | CT Scan Report ---
HEAD CT NONCONTRAST CT DOSE: 625.8 mGy.cm HISTORY: syncope, eval stroke TECHNIQUE: Multiaxial CT images of the head were performed without the use of intravenous contrast. A utomated exposure control was utilized for this study. A dose lowering technique was utilized adheri ng to the principles of ALARA. Comparison: None. Findings: The paranasal sinuses and mastoid air cells are clear. The calvarium and skull base are int act. The ventricles and sulci are within normal limits. There is no mass, hematoma, midline shift, or acute infarct. Impression: No acute intracranial abnormality. ACT 112: Negative or not required by law. Electronically signed by: Mook King M.D. 01/06/2024 3:05 PM
--- NOTE | 2024-01-06 16:11 | XRay Report ---
XR hip SARA 2v w pelvis CLINICAL HISTORY: rhabdo, fall, hip/leg pain COMPARISON STUDY: Abdomen and pelvis CTA 01/04/2024. FINDINGS: There is severe osteoarthritis again noted within the bilateral hips with flattening of the femoral heads consistent with superimposed avascular necrosis. No acute fracture or dislocation with in the pelvis or hips. The sacrum is intact. No radiopaque foreign bodies. Soft tissues are unremarka ble. IMPRESSION: 1. No acute fracture or dislocation within the pelvis or hips. 2. Severe osteoarthritis within the bilateral hips with superimposed avascular necrosis demonstrated by flattening of the femoral heads. ACT 112: Negative or not required by law. Electronically signed by: Mook King M.D. 01/06/2024 4:09 PM
--- NOTE | 2024-01-06 17:22 | Orthopedic Consultation ---
Date of Consultation January 06, 2024 Assessment & Plan (1) Avascular necrosis of bones of both hips: 63-year-old male with bilateral avascular necrosis of both hips with severe collapse and severe osteoarthritis Patient was seen in conjunction with Dr. Lozano. Diagnosis and plan was discussed with patient. Patient will need bilateral hip replacements. It was recommended to be referred down to [facility] hip joint specialist for bilateral hip replacements. Lower extremity edema and possible vascular occlusion will need to be resolved prior to surgery. Patient can be weightbearing as tolerated but will need a walker. All the patient's questions and concerns were addressed. He would like to proceed with referral down to [facility]. Our office will work on getting that referral. Please contact with any further questions or concerns. Supervising Physician Co-Signing Physician Notes I saw and examined the patient, reviewed his imaging, and performed the substantive portion of the visit. Patient has severe AVN. Needs to see a specialist as his hip replacement could be technically very difficult due to his limited ROM and the amount of collapse in his femoral heads. He is interested in going to [facility]. Follow-up there after discharge. Will need to be medically cleared History of Present Illness Reason for Consultation: Bilateral hip avascular necrosis Attending Physician: Stefan Nazario MD History of Present Illness Jorge is a 63-year-old male who was admitted 01/01 for syncope and bilateral lower extremity edema as well as hypertension. During his stay was found that he was having bilateral hip pain. X-rays were done that showed avascular necrosis and we were consulted for further management. Patient says that he has had bl hip pain for about 3 months now. He did not have any issues a year ago. He was working at [employer] and had no issues. He has pain when walking and he is using a walker. Most of his pain is anterior on does slightly radiate down his thigh. He denies any history of alcoholism, sickle cell anemia or chronic steroid use. Allergies Allergy/AdvReac Type Severity Reaction Status Date / Time No Known Allergies Allergy Unverified 01/02/24 21:29 Home Medications Medication Instructions Recorded Confirmed Type No Known Home Medications 01/02/24 01/02/24 History Patient History Social History Smoking Status: Never smoker Hx Alcohol Use: No Hx Substance Use: No Preferred Language: Polish Communication Ability: Effective Hat Designer Required: No Beliefs That Will Affect Care: None Current Living Situation: Significant Other Current Living Situation Comment: apartment Feels Safe at Home: Yes Assistive Devices: Walker Physical Exam Physical Exam: General: Patient is lying in hospital bed awake alert and oriented, calm and cooperative during exam Bilateral lower extremities: There are no skin abnormalities. Patient does have bilateral lower extremity edema mostly in his foot/ankle. His range of motion of his hip is significantly limited to 45 degrees of flexion, he does not tolerate hardly any abduction, internal and external rotation. He is able to do a straight leg raise bilaterally. He is able to flex and extend his knee. He does not note any pain with logroll bilaterally however patient is very stiff and guarding and his entire pelvis moves with logroll of individual leg. He has a difficult time moving 1 hip without also having to move the other hip. He has PT and DP pulses present bilaterally. Sensation is intact distally. Dorsiflexion plantarflexion is intact with his bilateral feet. Gross motor function is intact. Skin is warm distally. Results & Data Vital Signs (Past 12 Hours) Vital Signs Temp Pulse Pulse Resp BP Pulse Ox O2 Del Method 01/06/24 14:02 87 01/06/24 11:12 36.6 C 81 18 99/67 L 96 Room Air 01/06/24 07:47 36.3 C L 104 H 18 119/77 97 Room Air 01/06/24 06:00 80 Diagnostic Findings Hip/Pelvis X-Ray 01/06/24 14:41 XR hip SARA 2v w pelvis CLINICAL HISTORY: rhabdo, fall, hip/leg pain COMPARISON STUDY: Abdomen and pelvis CTA 01/04/2024. FINDINGS: There is severe osteoarthritis again noted within the bilateral hips with flattening of the femoral heads consistent with superimposed avascular necrosis. No acute fracture or dislocation within the pelvis or hips. The sacrum is intact. No radiopaque foreign bodies. Soft tissues are unremarkable. IMPRESSION: 1. No acute fracture or dislocation within the pelvis or hips. 2. Severe osteoarthritis within the bilateral hips with superimposed avascular necrosis demonstrated by flattening of the femoral heads. ACT 112: Negative or not required by law. Electronically signed by: Mook King M.D. 01/06/2024 4:09 PM
[2024-01-06] MEDS: oxyCODONE HCL IR 5 MG TAB (IMMEDIATE RELEASE) PO PRN (20:21)
[2024-01-07 06:53] LABS: Basophils # (auto) 0.04 K/uL (0.00-0.20); Basophils % (auto) 0.4 %; Eosinophils # (auto) 0.22 K/uL (0.00-0.50); Hematocrit (blood only) 42.1 % (42.0-52.0); Hemoglobin 14.7 g/dl (14.0-18.0); Immature Granulocytes # (auto) 0.05 K/uL (0.01-0.20); Immature Granulocytes % (auto) 0.4 %; Lymphocytes # (auto) 2.05 K/uL (1.20-3.40); Lymphocytes % (auto) 18.4 %; Mean Corpuscular Hgb Conc 34.9 g/dL (32.0-36.0); Mean Corpuscular Volume 85.9 fL (80.0-100.0); Monocytes # (auto) 0.94 K/uL (0.11-0.59); Monocytes % (auto) 8.4 %; Neutrophils # (auto) 7.86 K/uL (1.40-6.50); Neutrophils % (auto) 70.4 %; Platelet Count 360 K/uL (130-400); RDW Coefficient of Variation 13.2 % (11.5-14.5); RDW Standard Deviation 41.5 fL (36.4-46.3); White Blood Count 11.16 K/ul (4.8-10.8)
[2024-01-07 07:19] LABS: Albumin Globulin Ratio 1.2 (0.9-2); Albumin Level 4.1 gm/dl (3.4-5.0); BUN Creatinine Ratio 34.1 (10-20); Bilirubin,Total 0.9 mg/dl (0.2-1.0); Calcium 9.6 mg/dl (8.6-10.3); Creatinine Clr Calc Pharmacy 87.2 ml/min; Est GFR (African American) 108.2 ml/min; Est GFR (Non-African American) 93.4 ml/min; Globulin 3.3 gm/dl (2.5-4.0); Magnesium 1.9 mg/dl (1.7-2.4); Total Protein 7.4 gm/dl (6.0-8.3)
--- NOTE | 2024-01-07 07:52 | Hospitalist Progress Note ---
Date of Service January 07, 2024 Assessment & Plan (1) Rhabdomyolysis: Plan: CK 862 --> 1080 --> 1240 Had received 1L IVF in ER, 2L on 01/03 and additional 1L on 01/04 CK further elevated to 1366, holding diuretics/losartan as above IVF NSS @ 125cc/hr ordered for 01/05 CK 1376, not significantly worse. Will continue NSS but decrease rate to 80cc/hr given admitted w/ LE edema and monitor. Would hold off statin in meantime Repeat UA for eval given WBC elevation w/ L shift, CXR. Denied any fever/chills. ?reactive to pain Continue to monitor UOP, CK daily Will need new walker at dc, [facility] appt January 18. CM seeing about expediting [facility] application. Working on disposition given patient reporting GF w/ PFA against him and no where to go. CM to provide information on shelters for when stable for DC (2) Syncope: Plan: Pt is a 63 yo male with no significant PMH (per pt report) presenting to the ED d/t syncope and bilateral LE edema. Patient reports he is UNSURE of how long her was down for - unknown etiology; d/t lack of prodrome, concern for cardiac etiology - CBC, CMP WNL; trop neg x2. Hgb A1c: 5.6, Lipid panel WNL Orthostatic vitals negative ECHO with mild LVH, mild TR, otherwise normal Ddimer 480 , bilat venous dopplers neg Carotid doppler: no significant stenosis Urine drug screen negative -recommend outpt 30 day cardiac monitor technician but if no insurance, this would likely be cost prohibitive BP meds --> supervising provider switched losartan to metoprolol 25mg BID. Holding further HCTZ for now, no worsened LE edema despite additional IVF and suspect edema from rhabdo from being down TSH/t4 wnl, T3 slight elevation CT head negative for acute CVA Xray of pelvis/hip as below and needs outpt f/u and walker at dc Continue therapy while inpatient Improment in ambulation, no arrhythmia on monitor or further reports of syncope. ?if was related to vasovagal from pain (3) Avascular necrosis of bones of both hips: Plan: checked hip/pelvis xray films due to complaints of ongoing hip/anterior thigh pain and unclear events prior to fall/how long he was down for and concerns for worsened LE pain w/ movement over prior 3-4 weeks to the fall Xrays noting severe OA/AVN bilateral hips Orthopedics consulted Pain control, therapy evals Will need referral to [facility] given significant decreased ROM w/ hips -- Dr Lozano office helping to send information to [facility] (4) Peripheral artery disease: Plan: Suspect with pain that is worse at night, improves with walking CTA aorta with runoff: focal narrowing of popliteal arteries of approximately 60%, bilateral peroneal arteries occluded - Prior recs to start statin when rhabdomyolysis resolved HOWEVER would hold off until seen by PCP given current elevation Pedal pulses + on Doppler , indicating likely collaterals. Venous Doppler NEGATIVE for acute DVT - encourage ambulation - f/u with Vascular surgery once obtains insurance Continue ASA 81mg , new med, rx dc Check pelvis/hip xray for completeness -- see below. Would also not be surprised if having lumbar spine issues however no acute radicular symptoms reported (5) Bilateral lower extremity edema: Plan: Acute, unknown etiology. However patient reports that much improved from week prior (was unable to wear shoes) . ?post-strep glomerulonephritis. UA negative for protein on admission. ?related to venous stasis ?2nd to rhabdo given CK elevation TSH wnl, BNP not elevated ECHO as above with normal EF, mild MR. No significant valvular abnormalities Started HCTZ 25mg daily, placing on hold given CK elevation/slightly dehydrated on exam and ordered IVF LE edema NOT worse on continued IVF and will continue to monitor (6) Hypertension: Plan: Prior significant elevations to 200s/120s, suspect chronic HTN not on meds but also aspect of pain Losartan started and increased to 50mg daily, HCTZ added for leg swelling but as above on metoprolol per supervising provider BP elevations suspected 2nd to pain however reporting improvement and will monitor. May need to add low dose HCTZ back on given /better effects w/ CCB or thiazide diuretic however holding off diuretic for now given had worsened CK on such and suspect worsened dehydration Hydralazine IV added prn as needed Plan dispo: continued inpatient stay, following CK levels VTE ppx: lovenox while inpatient CM to assist w/ disposition issues Admission and Anticipated Discharge Date Admission Date: January 02, 2024 Supervising Physician Co-Signing Physician Notes The patient was not seen by me. The chart was reviewed. Case discussed with ANGELINA Saleh. Agree with assessment and plan Subjective Evaluated this morning, resting in bed [place], reports feeling better w/ the pain to anterior thighs. making good urine, clear in color. Needs new walker at dc, was seen by ortho this morning and they are working on getting information to [place]. pain controlled w/ ordered medications. discussed possible dc today -- he notes he is unable to go home today, issues with court appearance and no where to go at discharge because of this. Will contact CM for assistance with dispo planning/options. Questions/concerns addressed at this time. Physical Exam Physical Exam: General: 63 yo male laying on his side upon entry, NAD, sleeping upon entry but easily awoken. HEENT: head atraumatic, normocephalic, mmm, trachea midline Resp: even/unlabored, slightly diminished in the bases but on room air CV: RRR, no significant mrg, trace pedal edema baseline, not worse, no calf edema/tenderness, pulses faint but palpable GI: +BS, soft/NT : no walter, voiding spontaneously MSK/Neuro:edema to anterior>posterior thighs bilaterally IMPROVED, compartments more supple, calves nontender ROM of hips limited bilaterally due to significant OA Psych: AOx3, cooperative Results & Data Results & Data Vital Signs (Past 12 Hours) Vital Signs Temp Pulse Pulse Resp BP Pulse Ox O2 Del Method 01/07/24 07:25 92 H 01/07/24 03:39 36.6 C 88 18 136/81 93 Room Air 01/07/24 03:03 36.6 C 86 18 147/103 H 95 Room Air 01/07/24 01:00 79 01/06/24 23:05 36.3 C L 85 18 149/76 H 96 Room Air Laboratory Results 01/07/24 01/06/24 Range/Units 06:11 08:15 WBC 11.16 H (4.8-10.8) K/ul RBC 4.90 (4.70-6.10) M/uL Hgb 14.7 (14.0-18.0) g/dl Hct 42.1 (42.0-52.0) % MCV 85.9 (80.0-100.0) fL MCH 30.0 (25.0-34.0) pg MCHC 34.9 (32.0-36.0) g/dL RDW Std Deviation 41.5 (36.4-46.3) fL RDW Coeff of Krishan 13.2 (11.5-14.5) % Plt Count 360 (130-400) K/uL MPV 9.0 L (9.4-12.4) fL Immature Gran % (Auto) 0.4 % Neut % (Auto) 70.4 % Lymph % (Auto) 18.4 % [place] % (Auto) 8.4 % Eos % (Auto) 2.0 % Baso % (Auto) 0.4 % Neut # (Auto) 7.86 H (1.40-6.50) K/uL Lymph # (Auto) 2.05 (1.20-3.40) K/uL [place] # (Auto) 0.94 H (0.11-0.59) K/uL Eos # (Auto) 0.22 (0.00-0.50) K/uL Baso # (Auto) 0.04 (0.00-0.20) K/uL Immature Gran # (Auto) 0.05 (0.01-0.20) K/uL Sodium 137 (136-145) mmol/L Potassium 4.0 (3.5-5.1) mmol/L Chloride 105 (98-107) mmol/L Carbon Dioxide 25 (21-32) mmol/L Anion Gap 7 (3-11) BUN 29 H (6-23) mg/dl Creatinine 0.85 (0.6-1.4) mg/dl Est Cr Clr Drug Dosing 87.2 ml/min Est GFR ( Amer) 108.2 ml/min Est GFR (Non-Af Amer) 93.4 ml/min BUN/Creatinine Ratio 34.1 H (10-20) Glucose 87 (70-99(Fasting)) mg/dl Calcium 9.6 (8.6-10.3) mg/dl Magnesium 1.9 (1.7-2.4) mg/dl Total Bilirubin 0.9 (0.2-1.0) mg/dl AST 47 H (13-39) U/L ALT 37 (7-52) U/L Alkaline Phosphatase 72 (34-104) U/L Total Creatine Kinase 1376 H (30-223) U/L Total Protein 7.4 (6.0-8.3) gm/dl Albumin 4.1 (3.4-5.0) gm/dl Globulin 3.3 (2.5-4.0) gm/dl Albumin/Globulin Ratio 1.2 (0.9-2) TSH 3.406 (0.300-4.500) uIu/ml Free T4 1.12 (0.61-1.60) ng/dl Free T3 4.53 H (2.3-4.2) pg/ml Lyme Disease Screen Pending Diagnostic Findings Head CT 01/06/24 13:[address] DOSE: 625.8 mGy.cm HISTORY: syncope, eval stroke TECHNIQUE: Multiaxial CT images of the head were performed without the use of intravenous contrast. Automated exposure control was utilized for this study. A dose lowering technique was utilized adhering to the principles of ALARA. Comparison: None. Findings: The paranasal sinuses and mastoid air cells are clear. The calvarium and skull base are intact. The ventricles and sulci are within normal limits. There is no mass, hematoma, midline shift, or acute infarct. Impression: No acute intracranial abnormality. ACT 112: Negative or not required by law. Electronically signed by: Mook King M.D. 01/06/2024 3:05 PM Hip/Pelvis X-Ray 01/06/24 14:41 XR hip SARA 2v w pelvis CLINICAL HISTORY: rhabdo, fall, hip/leg pain COMPARISON STUDY: Abdomen and pelvis CTA 01/04/2024. FINDINGS: There is severe osteoarthritis again noted within the bilateral hips with flattening of the femoral heads consistent with superimposed avascular nec rosis. No acute fracture or dislocation within the pelvis or hips. The sacrum is intact. No radiopaque foreign bodies. Soft tissues are unremarkable. IMPRESSION: 1. No acute fracture or dislocation within the pelvis or hips. 2. Severe osteoarthritis within the bilateral hips with superimposed avascular necrosis demonstrated by flattening of the femoral heads. ACT 112: Negative or not required by law. Electronically signed by: Mook King M.D. 01/06/2024 4:09 PM PG Care Time/CCT Total # of Minutes Spent Total Time Spent with Patient: Total time spent is greater than 50% in coordination of care (as documented) at patient's floor/unit and/or counseling patient: Coding Level of Care Code 65368 SUB INP/OBS CARE MIN Diagnoses Rhabdomyolysis M62.82 Syncope R55 Encounter type: initial encounter Avascular necrosis of bones of both hips M87.051; M87.052 Peripheral artery disease I73.9 Bilateral lower extremity edema R60.0 Hypertension I10 Hypertension type: unspecified (2) Syncope Encounter type: initial encounter (6) Hypertension Hypertension type: unspecified Qualified Code(s): I10 - Essential (primary) hypertension
--- NOTE | 2024-01-07 09:43 | Orthopedic Progress Note ---
Date of Service January 07, 2024 Assessment & Plan (1) Avascular necrosis of bones of both hips: Plan: Recheck from yesterday. Doing fairly well. May weight bear as tolerated bilateral lower extremities with walker assistance. Refer to [facility] for bilateral total hip arthroplasties. Dr. Lozano working on referral. Will notify patient of upcoming scheduled appointment with [facility] physician, otherwise will sign off. Please call with questions or need for re-evaluation. Admission and Anticipated Discharge Date Admission Date: January 02, 2024 Subjective Patient ambulating in room, with walker. No complaints of severe pain in either hip or leg today. Physical Exam Musculoskeletal: No formal exam performed; ambulating/standing in room. Moves legs freely. Walker assistance. Results & Data Vital Signs (Past 12 Hours) Vital Signs Temp Pulse Pulse Pulse Resp BP Pulse Ox 01/07/24 07:51 36.5 C 91 H 16 159/102 H 93 01/07/24 07:25 92 H 01/07/24 03:39 36.6 C 88 18 136/81 93 01/07/24 03:03 36.6 C 86 18 147/103 H 95 01/07/24 01:00 79 01/06/24 23:05 36.3 C L 85 18 149/76 H 96 O2 Del Method 01/07/24 07:51 Room Air 01/07/24 07:25 01/07/24 03:39 Room Air 01/07/24 03:03 Room Air 01/07/24 01:00 01/06/24 23:05 Room Air
[2024-01-07] MEDS ORDERED: hydrALAZINE HCL 20 MG/ML VIAL IV PRN (12:50)
--- NOTE | 2024-01-07 15:19 | XRay Report ---
SINGLE VIEW CHEST CLINICAL HISTORY: Leukocytosis FINDINGS: 2 AP, portable, upright chest radiographs are compared to study dated 01/02/2024. The examin ation is degraded by portable technique and apical lordotic positioning. The cardiomediastinal silhou ette is top normal for projection. Emphysema and chronic interstitial thickening is similar to previo us. There is bibasilar scarring/atelectasis. No airspace consolidation or large pleural effusion is i dentified. No pneumothorax is seen. The bony thorax is grossly intact. IMPRESSION: Emphysematous change with no acute cardiopulmonary abnormality identified. ACT 112: Negative or not required by law. Electronically signed by: Jose Rafael Lovelace M.D. 01/07/2024 3:18 PM
[2024-01-07 20:00] LABS: Appearance Urine Clear (Clear); Bilirubin Urine Negative (Negative); Blood Urine Negative (Negative); Color Urine Yellow; Glucose Urine UA Negative (Negative); Ketones Urine Negative (Negative); Leukocyte Esterase Urine Negative (Negative); Nitrite Urine Negative (Negative); Protein Urine Negative (Negative); Specific Gravity Urine 1.017 (1.000-1.030); Urobilinogen Urine Negative (Negative); pH Urine 5.5 (4.5-7.5)
[2024-01-07] MEDS ORDERED: Nursing to Pharmacy Communication ONE (20:07)
[2024-01-08 07:22] LABS: Basophils # (auto) 0.04 K/uL (0.00-0.20); Basophils % (auto) 0.4 %; Eosinophils # (auto) 0.19 K/uL (0.00-0.50); Hematocrit (blood only) 42.5 % (42.0-52.0); Hemoglobin 14.8 g/dl (14.0-18.0); Immature Granulocytes # (auto) 0.03 K/uL (0.01-0.20); Immature Granulocytes % (auto) 0.3 %; Lymphocytes # (auto) 1.77 K/uL (1.20-3.40); Mean Corpuscular Hemoglobin 30.1 pg (25.0-34.0); Mean Corpuscular Hgb Conc 34.8 g/dL (32.0-36.0); Mean Corpuscular Volume 86.6 fL (80.0-100.0); Monocytes # (auto) 0.77 K/uL (0.11-0.59); Monocytes % (auto) 8.3 %; Platelet Count 345 K/uL (130-400); RDW Coefficient of Variation 13.3 % (11.5-14.5); RDW Standard Deviation 41.6 fL (36.4-46.3); Red Blood Count 4.91 M/uL (4.70-6.10)
[2024-01-08 07:23] LABS: Albumin Globulin Ratio 1.3 (0.9-2); Albumin Level 4.2 gm/dl (3.4-5.0); BUN Creatinine Ratio 29.1 (10-20); Bilirubin,Total 0.8 mg/dl (0.2-1.0); Calcium 9.8 mg/dl (8.6-10.3); Creatinine Clr Calc Pharmacy 101.3 ml/min; Est GFR (African American) 111.5 ml/min; Est GFR (Non-African American) 96.2 ml/min; Globulin 3.3 gm/dl (2.5-4.0); Total Protein 7.5 gm/dl (6.0-8.3)
--- NOTE | 2024-01-08 07:57 | Hospitalist Progress Note ---
Date of Service January 08, 2024 Assessment & Plan (1) Rhabdomyolysis: Plan: CK 862 --> 1080 --> 1240 Had received 1L IVF in ER, 2L on 01/03 and additional 1L on 01/04 CK further elevated to 1366, holding diuretics/losartan as above IVF NSS @ 125cc/hr ordered for 01/05 --> CK 1376 Continued NS @ 80cc/hr overnight, CK trending down 1221 and continues on such. BUN/Cr further improved. Will continue IVF overnight/encouraged PO intake WBC resolved on repeat, afebrile. UA NOT infected. CXR w/ emphysema, 96% on RA Monitor CK, BMP in AM CM to discuss disposition planning/resources, get sign MA application today. Will plan for dc tomorrow if CK not worse/pain controlled w/ PO to snf as will have no medical reason to keep inpatient, social issues unfortunately need dealt with by patient Discussed NOT having surgry for hips during this stay as he was thinking was going to happen and will need arranged outpatient after discharge and getting insurance. Will need walker at dc. Appt [facility] on January 18 (2) Syncope: Plan: Pt is a 63 yo male with no significant PMH (per pt report) presenting to the ED d/t syncope and bilateral LE edema. Patient reports he is UNSURE of how long her was down for - unknown etiology; d/t lack of prodrome, concern for cardiac etiology - CBC, CMP WNL; trop neg x2. Hgb A1c: 5.6, Lipid panel WNL Orthostatic vitals negative ECHO with mild LVH, mild TR, otherwise normal Ddimer 480 , bilat venous dopplers neg Carotid doppler: no significant stenosis Urine drug screen negative -recommend outpt 30 day licensed physical therapist assistant but if no insurance, this would likely be cost prohibitive BP meds --> supervising provider switched losartan to metoprolol 25mg BID. Holding further HCTZ for now, no worsened LE edema despite additional IVF and suspect edema from rhabdo from being down TSH/t4 wnl, T3 slight elevation CT head negative for acute CVA Xray of pelvis/hip as below and needs outpt f/u and walker at dc Continue therapy while inpatient Improvement in ambulation, no arrhythmia on monitor or further reports of syncope. ?if was related to vasovagal from pain (3) Avascular necrosis of bones of both hips: Plan: checked hip/pelvis xray films due to complaints of ongoing hip/anterior thigh pain and unclear events prior to fall/how long he was down for and concerns for worsened LE pain w/ movement over prior 3-4 weeks to the fall Xrays noting severe OA/AVN bilateral hips Orthopedics consulted Pain control, therapy evals Will need referral to [facility] given significant decreased ROM w/ hips -- Dr Lozano office helping to send information to [facility] Discussed with patient as he was thinking this was going to be inpatient and this IS NOT THE CASE. Will need outpt f/u (4) Peripheral artery disease: Plan: Suspect with pain that is worse at night, improves with walking CTA aorta with runoff: focal narrowing of popliteal arteries of approximately 60%, bilateral peroneal arteries occluded - Prior recs to start statin when rhabdomyolysis resolved HOWEVER would hold off until seen by PCP given current elevation Pedal pulses + on Doppler , indicating likely collaterals. Venous Doppler NEGATIVE for acute DVT - encourage ambulation - f/u with Vascular surgery once obtains insurance Continue ASA 81mg , new med, rx dc Pelvis/hip xray for completeness -- see below. (5) Bilateral lower extremity edema: Plan: Acute, unknown etiology. However patient reports that much improved from week prior (was unable to wear shoes) . ?post-strep glomerulonephritis. UA negative for protein on admission. ?related to venous stasis ?2nd to rhabdo given CK elevation HCTZ discontinued ECHO w/o significant valvular abn (mild MR), normal EF IMPROVED w/ IVF and decreased CK and will monitor (6) Hypertension: Plan: Prior significant elevations to 200s/120s, suspect chronic HTN not on meds but also aspect of pain Losartan started and increased to 50mg daily, HCTZ added for leg swelling but as above on metoprolol per supervising provider BP elevations suspected 2nd to pain however reporting improvement and BPs much improved on continued metorpolol 25mg BID as added by supervisiong provider Hydralazine available prn Plan VTE ppx: lovenox while inpatient dispo: continued inpatient stay, following CK levels in AM but if imp roved/stable will plan for dc. CM to f/u on disposition/discussions and MA application likely will need Lyft/transport arranged at dc Admission and Anticipated Discharge Date Admission Date: January 02, 2024 Supervising Physician Co-Signing Physician Notes The patient was not seen by me. The chart was reviewed. Case discussed with ANGELINA Saleh. Agree with assessment and plan Subjective Evaluated this morning, ambulating in the room with walker. Pain controlled with ordered medications. Labs improving, urine clear in color. Discussed discharge but will monitor overnight per his request due to pain/disposition. Reports was provided information w/ shelters but has no place to go. Discussed that would be place as if labs improving would have no reason to keep. He mentioned about doing surgery, discussed will be referred information/clinical to [facility] but this will need to be arranged outpatient after establishing care w/ [facility] and referrals in place. Will have CM back to discuss w/ patient. Physical Exam Physical Exam: General: 63 yoafrican malagasy male ambulating in the room with a walker, NAD, appears more comfortable but still with pain to his thighs Head atraumatic, normocephalic, mmm, trachea midline Resp: even/unlabored, no w/c/r, on room air CV: RRR, no significant mrg, no further pedal edema, decreased thigh tightness, compartments soft GI: +BS, soft/NT : no walter, voiding spontaneously MSK/Neuro:edema to anterior>posterior thighs bilaterally IMPROVED, compartments more supple, calves nontender ROM of hips limited bilaterally due to significant OA Psych: AOx3, cooperative Results & Data Results & Data Vital Signs (Past 12 Hours) Vital Signs Temp Pulse Pulse Resp BP Pulse Ox O2 Del Method 01/08/24 07:27 Room Air 01/08/24 04:01 36.5 C 80 20 142/89 H 97 Room Air 01/07/24 23:54 88 01/07/24 23:00 36.6 C 80 18 131/84 97 Room Air Laboratory Results 01/08/24 01/07/24 01/07/24 Range/Units 06:31 Unknown 06:11 WBC 9.30 (4.8-10.8) K/ul RBC 4.91 (4.70-6.10) M/uL Hgb 14.8 (14.0-18.0) g/dl Hct 42.5 (42.0-52.0) % MCV 86.6 (80.0-100.0) fL MCH 30.1 (25.0-34.0) pg MCHC 34.8 (32.0-36.0) g/dL RDW Std Deviation 41.6 (36.4-46.3) fL RDW Coeff of Krishan 13.3 (11.5-14.5) % Plt Count 345 (130-400) K/uL MPV 9.0 L (9.4-12.4) fL Immature Gran % (Auto) 0.3 % Neut % (Auto) 70.0 % Lymph % (Auto) 19.0 % Randall % (Auto) 8.3 % Eos % (Auto) 2.0 % Baso % (Auto) 0.4 % Neut # (Auto) 6.50 (1.40-6.50) K/uL Lymph # (Auto) 1.77 (1.20-3.40) K/uL Randall # (Auto) 0.77 H (0.11-0.59) K/uL Eos # (Auto) 0.19 (0.00-0.50) K/uL Baso # (Auto) 0.04 (0.00-0.20) K/uL Immature Gran # (Auto) 0.03 (0.01-0.20) K/uL Sodium 137 (136-145) mmol/L Potassium 4.0 (3.5-5.1) mmol/L Chloride 105 (98-107) mmol/L Carbon Dioxide 26 (21-32) mmol/L Anion Gap 6 (3-11) BUN 23 (6-23) mg/dl Creatinine 0.79 (0.6-1.4) mg/dl Est Cr Clr Drug Dosing 101.3 ml/min Est GFR ( Amer) 111.5 ml/min Est GFR (Non-Af Amer) 96.2 ml/min BUN/Creatinine Ratio 29.1 H (10-20) Glucose 86 (70-99(Fasting)) mg/dl Calcium 9.8 (8.6-10.3) mg/dl Total Bilirubin 0.8 (0.2-1.0) mg/dl AST 44 H (13-39) U/L ALT 39 (7-52) U/L Alkaline Phosphatase 74 (34-104) U/L Total Creatine Kinase 1221 H (30-223) U/L Total Protein 7.5 (6.0-8.3) gm/dl Albumin 4.2 (3.4-5.0) gm/dl Globulin 3.3 (2.5-4.0) gm/dl Albumin/Globulin Ratio 1.3 (0.9-2) Urine Color Yellow Urine Appearance Clear (Clear) Urine pH 5.5 (4.5-7.5) Ur Specific Rochelle 1.017 (1.000-1.030) Urine Protein Negative (Negative) Urine Glucose (UA) Negative (Negative) Urine Ketones Negative (Negative) Urine Blood Negative (Negative) Urine Nitrite Negative (Negative) Urine Bilirubin Negative (Negative) Urine Urobilinogen Negative (Negative) Ur Leukocyte Esterase Negative (Negative) Lyme Disease Screen Negative (Negative) PG Care Time/CCT Total # of Minutes Spent Total Time Spent with Patient: Total time spent is greater than 50% in coordination of care (as documented) at patient's floor/unit and/or counseling patient: Coding Level of Care Code 47955 SUB INP/OBS CARE 2/35MIN Diagnoses Rhabdomyolysis M62.82 Syncope R55 Encounter type: initial encounter Avascular necrosis of bones of both hips M87.051; M87.052 Peripheral artery disease I73.9 Bilateral lower extremity edema R60.0 Hypertension I10 Hypertension type: unspecified (2) Syncope Encounter type: initial encounter (6) Hypertension Hypertension type: unspecified Qualified Code(s): I10 - Essential (primary) hypertension
[2024-01-09 07:19] LABS: Albumin Globulin Ratio 1.3 (0.9-2); BUN Creatinine Ratio 28.9 (10-20); Bilirubin,Total 0.9 mg/dl (0.2-1.0); Calcium 9.7 mg/dl (8.6-10.3); Creatinine Clr Calc Pharmacy 97.5 ml/min; Est GFR (African American) 113.3 ml/min; Est GFR (Non-African American) 97.8 ml/min; Globulin 3.1 gm/dl (2.5-4.0); Potassium 3.8 mmol/L (3.5-5.1); Total Protein 7.1 gm/dl (6.0-8.3)
--- NOTE | 2024-01-09 08:06 | Hospitalist Progress Note ---
Date of Service January 09, 2024 Assessment & Plan (1) Rhabdomyolysis: Plan: CK 862 --> 1080 --> 1240 Had received 1L IVF in ER, 2L on 01/03 and additional 1L on 01/04 CK further elevated to 1366, holding diuretics/losartan as above IVF NSS @ 125cc/hr ordered for 01/05 --> CK 1376 Continued NS @ 80cc/hr overnight, CK trending down 1221 and continues on such. BUN/Cr further improved. Will continue IVF overnight/encouraged PO intake WBC resolved on repeat, afebrile. UA NOT infected. CXR w/ emphysema, 96% on RA CM to discuss disposition planning/resources, get sign MA application today. Will plan for dc tomorrow if CK not worse/pain controlled w/ PO to assisted as w ill have no medical reason to keep inpatient, social issues unfortunately need dealt with by patient Discussed NOT having surgry for hips during this stay as he was thinking was going to happen and will need arranged outpatient after discharge and getting insurance. Will need walker at dc. Appt [facility] on January 1801/08 BUN/Cr stable 22/0.76, remaining on continuous IVF @ 80cc/hr while inpatient and CK trending down, 983. No statin at this time CM looking into seeing if [facility] able to take w/ MA martha pending , calling his niece to see about contacting GF about PFA. DIfficulty w/ steps w/ therapy and no place to go Toradol 10mg IV x 1 for pain Monitor labs in AM (2) Syncope: Plan: Pt is a 63 yo male with no significant PMH (per pt report) presenting to the ED d/t syncope and bilateral LE edema. Patient reports he is UNSURE of how long her was down for - unknown etiology; d/t lack of prodrome, concern for cardiac etiology - CBC, CMP WNL; trop neg x2. Hgb A1c: 5.6, Lipid panel WNL Orthostatic vitals negative ECHO with mild LVH, mild TR, otherwise normal Ddimer 480 , bilat venous dopplers neg Carotid doppler: no significant stenosis Urine drug screen negative -recommend outpt 30 day cardiac rehabilitation specialist but if no insurance, this would likely be cost prohibitive BP meds --> supervising provider switched losartan to metoprolol 25mg BID. Holding further HCTZ for now, no worsened LE edema despite additional IVF and suspect edema from rhabdo from being down TSH/t4 wnl, T3 slight elevation CT head negative for acute CVA Xray of pelvis/hip as below and needs outpt f/u and walker at dc Continue therapy while inpatient Improvement in ambulation, no arrhythmia on monitor or further reports of syncope. ?if was related to vasovagal from pain (3) Avascular necrosis of bones of both hips: Plan: checked hip/pelvis xray films due to complaints of ongoing hip/anterior thigh pain and unclear events prior to fall/how long he was down for and concerns for worsened LE pain w/ movement over prior 3-4 weeks to the fall Xrays noting severe OA/AVN bilateral hips Orthopedics consulted Pain control, therapy evals Will need referral to [facility] given significant decreased ROM w/ hips -- Dr Lozano office helping to send information to [facility]. Patient reports he has appt told in January coming up for eval. Appt w/ [facility] on the first of January as well (4) Peripheral artery disease: Plan: Suspect with pain that is worse at night, improves with walking CTA aorta with runoff: focal narrowing of popliteal arteries of approximately 60%, bilateral peroneal arteries occluded - Prior recs to start statin when rhabdomyolysis resolved HOWEVER would hold off until seen by PCP given current elevation Pedal pulses + on Doppler , indicating likely collaterals. Venous Doppler NEGATIVE for acute DVT - encourage ambulation - f/u with Vascular surgery once obtains insurance Continue ASA 81mg , new med, rx dc Pelvis/hip xray for completeness -- see below. (5) Bilateral lower extremity edema: Plan: Acute, unknown etiology. However patient reports that much improved from week prior (was unable to wear shoes) . ?post-strep glomerulonephritis. UA negative for protein on admission. ?related to venous stasis ?2nd to rhabdo given CK elevation HCTZ discontinued ECHO w/o significant valvular abn (mild MR), normal EF IMPROVED w/ IVF and decreased CK and will monitor (6) Hypertension: Plan: Prior significant elevations to 200s/120s, suspect chronic HTN not on meds but also aspect of pain Losartan started and increased to 50mg daily, HCTZ added for leg swelling but as above on metoprolol per supervising provider BP elevations suspected 2nd to pain however reporting improvement and BPs much improved on continued metorpolol 25mg BID as added by supervisiong provider Hydralazine available prn Plan VTE ppx: lovenox while inpatient dispo: continued inpatient stay, following CK levels and seeing if [facility] able to consider taking now that MA martha pending/approved this morning per Admission and Anticipated Discharge Date Admission Date: January 02, 2024 Supervising Physician Co-Signing Physician Notes The patient was not seen by me. The chart was reviewed. Case discussed with ANGELINA Saleh. Agree with assessment and plan Subjective Eval this morning, up in chair, calling niece to see about contacting GF/dropping PFA. Discussed MA application pending/appears to be in process of approval and discussion w/ CM prior about possibility to get him into [facility]. He reports he was just seen by someone this morning from [facility] and they are going to get back to us. Physical Exam Physical Exam: General: 63 yo male sitting up in recliner, on the phone, slightly uncomfortable but no acute distress Head atraumatic, normocephalic, mmm, trachea midline Resp: even/unlabored, no w/c/r, on room air CV: RRR, no significant mrg, no further pedal edema, decreased thigh tightness, compartments soft GI: +BS, soft/NT : no walter, voiding spontaneously MSK/Neuro:edema to anterior>posterior thighs bilaterally IMPROVED, compartments supple, calves nontender ROM of hips limited bilaterally due to significant OA Psych: AOx3, cooperative Results & Data Results & Data Vital Signs (Past 12 Hours) Vital Signs Temp Pulse Pulse Resp BP Pulse Ox O2 Del Method 01/09/24 07:31 36.4 C L 88 18 144/86 H 96 Room Air 01/09/24 02:44 168/103 H 01/09/24 02:27 36.8 C 78 18 170/106 H 95 Room Air 01/08/24 23:46 85 01/08/24 22:23 36.7 C 78 16 129/73 96 Room Air Laboratory Results 01/09/24 Range/Units 06:25 Sodium 138 (136-145) mmol/L Potassium 3.8 (3.5-5.1) mmol/L Chloride 107 (98-107) mmol/L Carbon Dioxide 26 (21-32) mmol/L Anion Gap 5 (3-11) BUN 22 (6-23) mg/dl Creatinine 0.76 (0.6-1.4) mg/dl Est Cr Clr Drug Dosing 97.5 ml/min Est GFR ( Amer) 113.3 ml/min Est GFR (Non-Af Amer) 97.8 ml/min BUN/Creatinine Ratio 28.9 H (10-20) Glucose 93 (70-99(Fasting)) mg/dl Calcium 9.7 (8.6-10.3) mg/dl Total Bilirubin 0.9 (0.2-1.0) mg/dl AST 39 (13-39) U/L ALT 36 (7-52) U/L Alkaline Phosphatase 71 (34-104) U/L Total Creatine Kinase 983 H (30-223) U/L Total Protein 7.1 (6.0-8.3) gm/dl Albumin 4.0 (3.4-5.0) gm/dl Globulin 3.1 (2.5-4.0) gm/dl Albumin/Globulin Ratio 1.3 (0.9-2) PG Care Time/CCT Total # of Minutes Spent Total Time Spent with Patient: Total time spent is greater than 50% in coordination of care (as documented) at patient's floor/unit and/or counseling patient: Coding Level of Care Code 44751 SUB INP/OBS CARE 235MIN Diagnoses Rhabdomyolysis M62.82 Syncope R55 Encounter type: initial encounter Avascular necrosis of bones of both hips M87.051; M87.052 Peripheral artery disease I73.9 Bilateral lower extremity edema R60.0 Hypertension I10 Hypertension type: unspecified (2) Syncope Encounter type: initial encounter (6) Hypertension Hypertension type: unspecified Qualified Code(s): I10 - Essential (primary) hypertension
[2024-01-09] MEDS ORDERED: KETOROLAC TROMETHAMINE 15 MG/ML VIAL IV ONE (11:49)
--- NOTE | 2024-01-09 14:04 | Discharge Summary ---
Date of Service January 09, 2024 Admission HPI Per Admitting Provider Pt is a 63 yo male with no significant PMH (per pt report) presenting to the ED d/t syncope and bilateral LE edema. Pt states he has had bilateral leg swelling for the past week. He has never had this before. He also notes his upper legs are painful. He does have a long standing hx of right hip pain/problem ongoing for about a year. He denies any related symptoms of chest pain, SOB, cough, fevers, and N/V/D. He also relays that he passed out at home today. No significant prodrome- no sweating, dizziness, nausea, or chest pain. He simply woke up on the floor after he was getting some food. He is unsure if he hit his head. He notes that he had a similar episode about 4-5 months ago. He does note intermittent dizziness over the last 3 weeks that does not seem to be triggered by anything and resolves spontaneously. He denies any PMH including stroke, heart problem/NV, or seizures. He denies taking any daily medications aside from advil for pain relief. He denies alcohol use, smoking, and drug use. He does vape tobacco. He has never had surgery. He note he moved here around 2.5 years ago from [place] to be with his girlfriend. He has plans to establish with [facility] in the near future. Admission Exam Per Admitting Provider Constitutional: NAD. Well appearing Eyes: Conjunctivae normal. Respiratory: CTA bilaterally. Non labored breathing. No rhonchi, wheezing, or crackles. Cardiovascular: RRR. No murmurs noted. 1+ bilateral pitting LE edema. Gastrointestinal (Abdomen): Nontender, +BS. No masses noted. Musculoskeletal: 5/5 strength in bilateral dorsi/plantar flexion. 4/5 strength of bilateral hip flexion. Skin: No rashes or skin lesions noted. Hyperkeratosis of bilateral feet noted. Neurologic: Sensation grossly intact. No FND appreciated. Psychiatric: Speech of normal pace and content. Mood and affect congruent. Principal Diagnosis Syncope/Fall, Rhabdomyolysis, Osteoarthritis of bilateral hips Discharge Exam General: 63 yo male sitting up in recliner, on the phone, NAD Head atraumatic, normocephalic, mmm, trachea midline Resp: even/unlabored, no w/c/r, on room air CV: RRR, no significant mrg, no further pedal edema, decreased thigh tightness, compartments soft GI: +BS, soft/NT : no walter, voiding spontaneously MSK/Neuro:edema to anterior>posterior thighs bilaterally IMPROVED, compartments supple, calves nontender ROM of hips limited bilaterally due to significant OA Psych: AOx3, cooperative Discharge Data Allergies Allergy/AdvReac Type Severity Reaction Status Date / Time No Known Allergies Allergy Unverified 01/02/24 21:29 Consultations 01/02/24 19:59 ED Decision to Admit Stat 01/06/24 16:11 Consult Orthopedic Surgery Routine Ordered Studies Chest X-Ray 01/02/24 17:41 XR chest 1V not portable HISTORY: Chest pain, nonspecific COMPARISON: None. FINDINGS: The lungs are clear. Cardiac silhouette is normal in size. No pleural effusions. No pneumothorax. IMPRESSION: No acute process. ACT 112: Negative or not required by law. Electronically signed by: Mook King M.D. 01/02/2024 6:48 PM Carotid Doppler Study 01/02/24 21:41 CAROTID ARTERY ULTRASOUND CLINICAL HISTORY: Syncope. COMPARISON STUDY: None. TECHNIQUE: Real-time, grayscale, and color Doppler sonography of the carotid and vertebral arteries was performed. Images were viewed in the transverse and longitudinal planes. FINDINGS: There is mild to moderate atherosclerotic plaque present within the right carotid bifurcation and minimal plaque within the left carotid bifurcation. Velocity measurements are listed below. COMMON CAROTID PEAK SYSTOLIC VELOCITY (CM/S): RIGHT 84 LEFT 77 ICA PEAK SYSTOLIC VELOCITY (CM/S): RIGHT 112 LEFT 68 Systolic ratios between the internal to common carotid arteries were normal. Antegrade flow is seen in the vertebral arteries. The external carotid arteries are patent. IMPRESSION: No evidence for a hemodynamically significant stenosis. ACT 112: Negative or not required by law. Electronically signed by: Dada Betts M.D. 01/03/2024 9:33 AM Venous Doppler Study 01/03/24 12:15 BILATERAL LOWER EXTREMITY VENOUS DOPPLER CLINICAL HISTORY: Bilateral lower extremity edema. COMPARISON STUDY: No previous studies for comparison. TECHNIQUE: Sonography of the deep venous system of the bilateral lower extremities was performed. Compression and augmentation were evaluated. FINDINGS: This exam was mildly compromised given difficulty positioning. The bilateral common femoral, superficial femoral and popliteal veins were compressible. Augmentation was normal. Flow was shown within the deep calf vessels. IMPRESSION: Exam mildly compromised given difficulty positioning but no evidence of deep venous thrombus within the bilateral lower extremities. ACT 112: Negative or not required by law. Electronically signed by: Dada Betts M.D. 01/03/2024 2:53 PM Aorta w/Runoff CTA 01/04/24 11:07 CT ANGIOGRAM OF THE ABDOMEN, PELVIS, BILATERAL LOWER EXTREMITIES WITH RUNOFF CT DOSE: 1456.55 mGy.cm CLINICAL HISTORY: Lower extremity pain. Assess for peripheral arterial disease. TECHNIQUE: Multiaxial CT images of the abdomen, pelvis, bilateral lower extremities were performed following the intravenous administration of 118 cc of Optiray 320. 3-D/maximal intensity projection images in the sagittal and coronal planes were performed for the CTA portion of the examination. A dose lowering technique was utilized adhering to the principles of ALARA. COMPARISON STUDY: None. FINDINGS: CTA: The visualized heart appears normal in size. There are single bilateral renal arteries which are patent. The celiac, superior mesenteric, and inferior mesenteric arteries are widely patent. Incidental note is made of a replaced right hepatic artery originating from the superior mesenteric artery. This is considered to be a normal variant. Abdominal aorta is normal and course and caliber with no evidence for an aneurysm or dissection. The bilateral iliac arteries are also normal in course and caliber. Mild calcified plaque within the bilateral common femoral arteries without significant stenosis or occlusion. The bilateral superficial femoral arteries are widely patent. Focal narrowing of up to 60% within the proximal to mid right popliteal artery on image 645. Focal narrowing of approximately 60% within the proximal to mid left popliteal artery on image 639. The bilateral posterior tibial arteries are patent. The right anterior tibial artery is patent. There is moderate focal narrowing of approximately 60% at the takeoff of the left anterior tibial artery. Otherwise, the remaining left anterior tibial artery is widely patent. The right peroneal artery is completely occluded. Trickle of contrast within the proximal left peroneal artery. Otherwise, the left peroneal artery appears completely occluded. The bilateral dorsalis pedis arteries appear patent. Mild dependent changes seen within the lung bases. Motion artifact results in suboptimal evaluation of the abdomen and pelvis. Severe degenerative changes within the bilateral hips. The liver, spleen, adrenal glands, pancreas, and gallbladder appear unremarkable. Normal left kidney. There is a 1.5 cm right re nal cyst. No hydronephrosis. No retroperitoneal or pelvic lymphadenopathy. The bladder is unremarkable. The prostate gland is mildly enlarged. No bowel wall thickening or obstruction. Normal appendix. IMPRESSION: 1. Focal narrowing of the proximal to mid bilateral popliteal arteries of approximately 60%. 2. Bilateral peroneal arteries are occluded. 3. Moderate focal narrowing at the takeoff of the left anterior tibial artery. 4. Additional findings as described above. ACT 112: Negative or not required by law. Electronically signed by: Mook King M.D. 01/04/2024 12:[address] 01/06/24 13:[address] DOSE: 625.8 mGy.cm HISTORY: syncope, eval stroke TECHNIQUE: Multiaxial CT images of the head were performed without the use of intravenous contrast. Automated exposure control was utilized for this study. A dose lowering technique was utilized adhering to the principles of ALARA. Comparison: None. Findings: The paranasal sinuses and mastoid air cells are clear. The calvarium and skull base are intact. The ventricles and sulci are within normal limits. There is no mass, hematoma, midline shift, or acute infarct. Impression: No acute intracranial abnormality. ACT 112: Negative or not required by law. Electronically signed by: Mook King M.D. 01/06/2024 3:05 PM Hip/Pelvis X-Ray 01/06/24 14:41 XR hip SARA 2v w pelvis CLINICAL HISTORY: rhabdo, fall, hip/leg pain COMPARISON STUDY: Abdomen and pelvis CTA 01/04/2024. FINDINGS: There is severe osteoarthritis again noted within the bilateral hips with flattening of the femoral heads consistent with superimposed avascular necrosis. No acute fracture or dislocation within the pelvis or hips. The sacrum is intact. No radiopaque foreign bodies. Soft tissues are unremarkable. IMPRESSION: 1. No acute fracture or dislocation within the pelvis or hips. 2. Severe osteoarthritis within the bilateral hips with superimposed avascular necrosis demonstrated by flattening of the femoral heads. ACT 112: Negative or not required by law. Electronically signed by: Mook King M.D. 01/06/2024 4:09 PM Chest X-Ray 01/07/24 07:53 SINGLE VIEW CHEST CLINICAL HISTORY: Leukocytosis FINDINGS: 2 AP, portable, upright chest radiographs are compared to study dated 01/02/2024. The examination is degraded by portable technique and apical lordotic positioning. The cardiomediastinal silhouette is top normal for projection. Emphysema and chronic interstitial thickening is similar to previous. There is bibasilar scarring/atelectasis. No airspace consolidation or large pleural effusion is identified. No pneumothorax is seen. The bony thorax is grossly intact. IMPRESSION: Emphysematous change with no acute cardiopulmonary abnormality identified. ACT 112: Negative or not required by law. Electronically signed by: Jose Rafael Lovelace M.D. 01/07/2024 3:18 PM Hospital Course (1) Rhabdomyolysis: Patient admitted for syncope after being found down, patient unsure how long her was down for CT head negative on admission CK elevated to 1366, placed on IVF and trending down, 983 on repeat and BUN/Cr stable and reporting clear yellow urine. WBC wnl on repeat, afebrile. UA w/o infection. CXR w/o acute process Oxycodone provided for below, toradol x 1 for pain and needing ortho f/u PT/OT consulted and recs for rehab, [place] application assisted by case management and told approval and [facility] reviewed chart and able to accept for acute inpatient rehab. Appt for [facility] on the . (2) Syncope: no prodrome reported, no concerns for cards etiology. Troponin negative. CT head negative for acute CVA Ddimer negative, b/l venous dopplers negative for DVT Carotid doppler w/o significant stenosis. UDS negative TSH/t4 wnl, T3 slight elevation 30 day event monitor rec at [facility] -- notable patient has NOT had any significant arrtyhmia on monitor No further syncope. ?vasovagal in setting of pain given severe b/l OA/AVN hip as below (3) Avascular necrosis of bones of both hips: checked hip/pelvis xray films due to complaints of ongoing hip/anterior thigh pain and unclear events prior to fall/how long he was down for and concerns for worsened LE pain w/ movement over prior 3-4 weeks to the fall Xrays noting severe OA/AVN bilateral hips Orthopedics consulted, need referral to [facility] given significant decreased ROM w/ hips -- Dr Lozano office helping to send information to [facility]. Patient reports he has appt told in January coming up for eval. Appt w/ [facility] on the first january as well Pain control w/ oxycodone prn, continued therapy as above at discharge and outpatient f/u as arranged once established w/ primary care (4) Peripheral artery disease: Suspect with pain that is worse at night, improves with walking CTA aorta with runoff: focal narrowing of popliteal arteries of approximately 60%, bilateral peroneal arteries occluded Prior recs to start statin when rhabdomyolysis resolved HOWEVER would hold off until seen by PCP given current elevation/resolution in CK (improved on repeat as above) Pedal pulses + on Doppler , indicating likely collaterals. Venous Doppler NEGATIVE for acute DVT - encourage ambulation - f/u with Vascular surgery once obtains insurance recommended Started on baby aspirin, continued at dc (5) Bilateral lower extremity edema: Acute, unknown etiology initially however suspect 2nd to fall/rhabdo as above initially placed on HCTZ however CK unchanged and edema unchanged. Stopped HCTZ, provided additional IVF as above and improvement in CK w/ improvement in LE edema ECHO w/o significant valvular abn (mild MR), normal EF Venous dopplers NEGATIVE bilaterally as above Continued monitoring (6) Hypertension: Significant elevations, not on medication HCTZ initially however stopped given above but could be considered in f/u given /likely benefit from CCB/thiazide diuretic but held off in setting of rhabdo LE edema improved/resolved w/ tx rhabdo as above BP improved w/ addition of metoprolol BID and continuing at dc per supervising provider --> avoiding aggressive BP control in setting of pain but can continue to monitor/additional agent as needed in f/u VTE ppx: lovenox while inpatient Plan Discharging to [facility] for acute inpatient rehab, encouraged to continue to push fluids and avoid dehydration. Will need f/u with [facility] as outlined, f/u orthopedics for hip replacement at tertiary care and f/u with vascular. Continue ASA 81mg daily at discharge along with metoprolol for BP and consideration for CCB/thiazide in f/u. Also needs vascular for suspected PAD as above given CTA Total Time Total Time Spent Total Time Spent (In Minutes): 45 Discharge Plan Discharge Items Patient Disposition: Transfer Inpatient Rehab Fac Reason For Visit: SYNCOPE, BILATERAL LE EDEMA Discharge Diagnosis: Fall, Syncope, Rhabdomyolysis, Bilateral hip osteoarthritis, ambulatory dysfunction Goals: You have been hospitalized for an acute medical problem. During your stay at [facility], we have made an effort to correct the problem that brought you to the hospital while keeping you as comfortable as possible. Medications were used to bring your condition under control and your discharge instructions will include directions for any medications you should take after leaving the hospital. Please make sure you see your Primary Care Provider as part of your follow up plan. Activity: As commented below Activity Comment: weight bearing as tolerated with walker Non-emergency contact: Primary Care Provider and Surgeon Call non-emergency contact if: you have any medication questions, your symptoms worsen, your pain is concerning for you and you have a fever Follow-up/Referrals: Mary Jane Costello [Other] - 02/09/24 12:45 pm ([id number]) PCP,MAGALIE [Primary Care Provider] - Diet: Heart Healthy Addtl Attending Provider Instructions: You have been hospitalized after being found down. CT scan of the head was negative for acute stroke. ECHO (ultrasound of your heart) was negative for any wall motion abnormalities/damage to the heart or significant valvular abnormality. EKG was stable. Troponin (enzyme to measure damage to the heart) was negative. Your CK level was elevated, which measures muscle breakdown, and likely increased because of how long you were down. We provided IV fluids and pain control and this level has improved and your renal function has remained stable. Your blood pressure was elevated and we added metoprolol twice daily and can continue to monitor blood pressures and likely will need additional medications however this is also likely elevated in the setting of pain. You also have been started on baby aspirin and should have follow up with vascular medicine once you are established with primary care for ongoing management/referral to vascular medicine. In the meantime, please continue baby aspirin and you may need to add medication for cholesterol called a stain however this is not started given the rhabdomyolysis (muscle breakdown) as this can cause further elevations. You will need to have follow up with [facility] as arranged in the beginning of January. Orthopedics was also consulted given your ongoing worse hip pain and demonstrated you have bilateral hips that will need replacement but due to the findings this would be best treated at tertiary centre like [place] and follow up appointment has already been made as discussed. Therapy evaluated you and arrangements thankfully have been made to [facility] for acute inpatient rehab. Please follow up with primary care, orthopedics, and specialists as outlined. Please treturn to the emerrgency department with any increased/uncontrolled pain , chest pain, shortness of breath or for any other symptoms concerning for you. It has been a pleasure being a part of the medical team providing for you while you have been in the hospital. Take care! Pending Studies at Discharge: No Stand-Alone Forms: My [facility] Skilled Items Patient informed of condition?: Yes DNR: No Discharge Level of Care: Acute rehab Communicable Disease: No Discharge Prognosis: Improving Lines: None Urinary Catheter: No Medications and DC Order Prescriptions: New acetaminophen 325 mg Tablet 650 mg PO Q4H PRN (Reason: fever or pain) Qty: 30 0RF aspirin 81 mg Tablet,Delayed Release (Dr/Ec) 81 mg PO DAILY Qty: 30 0RF oxycodone 5 mg Tablet 5 mg PO Q6H PRN (Reason: pain) Qty: 14 0RF metoprolol tartrate 25 mg Tablet 25 mg PO BID Qty: 60 0RF Discharge Orders: Discharge Order (Routine); Ordered 01/09/24 Ordered By: Chanell Majano Admission Data Admit Date/Time: 01/02/24 21:07 Attending Provider: Stefan Nazario Admit Provider: Claudine Cherry Primary Care Provider: PCP,NO Other Providers: Lola Omer; Parker Lozano; [facility] Supervising Physician Co-Signing Physician Notes The patient was not seen by me. The chart was reviewed. Case discussed with ANGELINA Saleh. Agree with assessment and plan. The patient is medically stable for discharge today, January 08 Coding Level of Care Code 64807 INP/OBS DISCH >30 MIN Diagnoses Rhabdomyolysis M62.82 Syncope R55 Encounter type: initial encounter Avascular necrosis of bones of both hips M87.051; M87.052 Peripheral artery disease I73.9 Bilateral lower extremity edema R60.0 Hypertension I10 Hypertension type: unspecified
== END 2024-01-09 15:49 | DRG 558 ==
LOC: ED 17:10 → SUATTDRO 21:07 → INTOOBSV 21:07 → EDINP 21:07 → 2N 22:13